=== PATIENT | female | born 1950 | race Caucasian/White ===

== ENCOUNTER → 2020-02-21 | Outpatient (CLI) | payer MEDICARE, OTHER ==
[~2020-02-21] MED LIST: AMLODIPINE BESYL5 MG PO; BACTRIM DS TAB1 EACH PO; BYSTOLIC10 MG PO; ELIQUIS5 M1; LASIX40 MG PO; MONTELUKAST SOD10 MG PO; NP THYROID15 MG; POTASSIUM CHLO20 ME1; PREDNISONE10 MG PO; THEO-24400 MG; THYROID; ZPAK PO; [UNRECOGNIZED DRUG - OTHER]
== END ==
LOC: RESP 11:49
PROVIDERS: ATTEND Internal Medicine Critical Care Medicine
DX: Z12.2 Encounter for screening for malignant neoplasm of respiratory organs (principal); F17.290 Nicotine dependence, other tobacco product, uncomplicated
CPT/HCPCS: 71250; 94060; 94664; 94727; 94729

== ENCOUNTER 2020-02-24 21:55 | Inpatient (IN) | payer MEDICARE, OTHER ==
[~2020-02-24] VITALS: Ht 152.4 cm; Wt 52.2 kg
[2020-02-24] MEDS ORDERED: ALBUTEROL SULF 0.083% NEB SOLN 3 ML NEB NEB STA (22:08)
[2020-02-24] MEDS ORDERED: IPRATROPIUM BROMIDE 0.02% 2.5 ML NEB NEB ONE (22:15)
[2020-02-24] MEDS ORDERED: ALBUTEROL SULFATE HFA 8GM INHALATION AEROSOL INH ONE (22:15)
[2020-02-24] MEDS ORDERED: METHYLPREDNISOLONE SOD SUCC 125 MG/2ML VIAL IV ONE (22:15)
--- NOTE | 2020-02-24 22:16 | NUR ---
RT AT PTS BEDSIDE TO APPLY BIPAP
[2020-02-24 22:24] LABS: BASOPHILS % 0.2 % (0.0-1.0); EOSINOPHILS % 0.1 % (0.0-6.0); HEMATOCRIT 45.3 % (34.2-44.1); HEMOGLOBIN 13.3 g/dL (12.0-16.0); LYMPHOCYTES # (AUTO) 0.7 (1.0-3.2); LYMPHOCYTES % 3.7 % (18.0-39.1); MEAN CORPUSCULAR HEMOGLOBIN 26.8 pg (28-32); MEAN CORPUSCULAR HGB CONC 29.4 g/dL (31-35); MEAN CORPUSCULAR VOLUME 91.1 fL (81-99); MONOCYTES # (AUTO) 1.2 (0.2-0.8); MONOCYTES % 6.2 % (4.4-11.3); NEUTROPHILS # (AUTO) 17.9 (2.1-6.9); NEUTROPHILS % 89.5 % (38.7-80.0); PLATELET COUNT 290 x10e3/uL (140-360); RED BLOOD COUNT 4.97 x10e6/uL (3.6-5.1)
[2020-02-24 22:31] LABS: ABG PCO2 74 mmHg (35-45)
[2020-02-24 22:32] LABS: ABG HCO3 46 mmol/L (22-26); ABG PO2 44 mmHg (80-105); ABG TCO2 48
[2020-02-24 22:47] LABS: ALANINE AMINOTRANSFERASE 13 IU/L (0-55); ALBUMIN 3.6 g/dL (3.5-5.0); ALBUMIN/GLOBULIN RATIO 0.9 (0.8-2.0); ALKALINE PHOSPHATASE 78 IU/L (40-150); ANION GAP 17.4 mmol/L (8-16); BLOOD UREA NITROGEN 13 mg/dL (7-26); BUN/CREATININE RATIO 19 (6-25); CALCIUM 9.9 mg/dL (8.4-10.2); CARBON DIOXIDE 40 mmol/L (22-29); CHLORIDE 90 mmol/L (98-107); CREATINE KINASE 38 IU/L (29-168); CREATININE, SERUM 0.67 mg/dL (0.57-1.11); EST GLOMERULAR FILTRATION RATE > 60 ML/MIN (60-); GLUCOSE 142 mg/dL (74-118); POTASSIUM 4.4 mmol/L (3.5-5.1); SODIUM 143 mmol/L (136-145)
[2020-02-24 22:53] LABS: B-TYPE NATRIURETIC PEPTIDE2 156.3 pg/mL (0-100)
--- NOTE | 2020-02-24 22:55 | Emergency Department Note ---
History of Present Illnes History of Present Illness Chief Complaint: COVID PUI History of Present Illness This is a 69 year old female PRESENTST TO THE ER C/O SOB AND COUGH ONSET X2 DAYS DEVELOPMENT LEAD; PT TACHPNEIC AND PURSED LIP BREATHING ON ARRIVAL; PT WEARS 3L NC HOME O2; PT STATES SHE HAS GONE THROUGH X2 O2 TANKS IN THE PAST X2 DAYS; PT BROUGHT TO ER RM 2 ON ARRIVAL; PT DENIES CP; PT REPORTS GREEN PHLYEM; PT SPO2 84% ON 4L NC; RT CALLED FOR STAT BIPAP PLACEMENT; . Historian: Patient Arrival Mode: Car Postal Carrier Required: No Onset (how long ago): day(s) (2) Location: CHEST Quality: SOB, PRODUCTIVE COUGH Radiation: Reports non-radiation Severity: moderate Onset quality: gradual Duration (how long): day(s) (2) Timing of current episode: constant Progression: worsening Chronicity: recurrent Context: Reports recent illness ( ABOVE); Denies recent surgery, Denies recent travel, Denies trauma/injury Relieving factors: none Exacerbating factors: movement Associated symptoms: Reports cough, Reports shortness of breath Treatments prior to arrival: none Past Medical/Family History Physician Review I have reviewed the patient's past medical and family history. Any updates have been documented here. Past Medical History Recent Fever: No Clinical Suspicion of Infectio: No New/Unexplained Change in Ment: No Past Medical History: COPD Social History Smoking Cessation: Former smoker Alcohol Use: None Any Illegal Drug Use: No Family History Family history of heart diseas: No Review of Systems Review of Systems Constitutional: Reports no symptoms EENTM: Reports no symptoms Cardiovascular: Reports no symptoms Respiratory: Reports as per HPI Gastrointestinal: Reports no symptoms Genitourinary: Reports no symptoms Musculoskeletal: Reports no symptoms Integumentary: Reports no symptoms Neurological: Reports no symptoms Psychological: Reports no symptoms Endocrine: Reports no symptoms Hematological/Lymphatic: Reports no symptoms Physical Exam Related Data Allergies: Coded Allergies: Penicillins (Verified Allergy, Unknown, 02/24/20) Triage Vital Signs Vital Signs Date Time Temp Pulse Resp B/P (MAP) Pulse Ox O2 Delivery O2 Flow Rate FiO2 02/24/20 21:55 114 42 143/114 84 Nasal Cannula 5.0 02/24/20 22:40 97.6 40 Vital signs reviewed: Yes Physical Exam CONSTITUTIONAL Constitutional: Present well-developed, Present well-nourished, Present distressed (MODERATE) HENT HENT: Present normocephalic, Present atraumatic, Present oropharynx clear/moist, Present nose normal HENT L/R: Present left ext ear normal, Present right ext ear normal EYES Eyes: Reports PERRL, Reports conjunctivae normal NECK Neck: Present ROM normal PULMONARY Pulmonary: Present effort normal, Present respiratory distress (MODERATE RR 45), Present other (WHEEZING AND DECREASES BS THROUGH OUT) CARDIOVASCULAR Cardiovascular: Present regular rhythm, Present heart sounds normal, Present capillary refill normal, Present tachycardia GASTROINTESTINAL Abdominal: Present soft, Present nontender, Present bowel sounds normal GENITOURINARY Genitourinary: Present exam deferred SKIN Skin: Present warm, Present dry MUSCULOSKELETAL Musculoskeletal: Present ROM normal NEUROLOGICAL Neurological: Present alert, Present oriented x 3, Present no gross motor or sensory deficits PSYCHOLOGICAL Psychological: Present mood/affect normal, Present judgement normal Results Laboratory Laboratory Laboratory Tests Test 02/24/20 22:26 02/24/20 22:15 02/24/20 22:12 Arterial Blood pH 7.40 (7.35-7.45) Arterial Blood Partial Pressure CO2 74 mmHg (35-45) Arterial Blood Partial Pressure O2 44 mmHg (80-105) Arterial Blood HCO3 46 mmol/L (22-26) Arterial Blood Total CO2 48 Arterial Blood Oxygen Saturation 77.0 % (95-98) Arterial Blood Base Excess 21.0 mmol/L (-2 - 3) FiO2 32 % Imaging Imaging results reviewed: Yes Impressions LLL INFILTRATE ON CXR Procedures 12 Lead ECG Interpretation ECG Interpretation : ECG: ECG 1 Postal Carrier: Interpreted by ED physician Date: Feb 24, 2020 Time: 22:45 Rhythm: sinus tachycardia Conduction: incomplete LBBB ST segments normal: No (NON SPECIFIC CHANGES,) T waves normal: No (NON SPECIFIC CHANGES) Other findings: LVH Q waves: V1, V2, V3 Critical Care Time Total Critical Care Time (min): 31 Critcal care necessary due to: respiratory failure Critcal care time spent by me: develop tx plan w patient/surrogate, discussion w consultants, discussion w primary provider, interpret cardiac output measures, evaluation patient response to tx, examination of patient, obtaining hx from patient/surrogate, order/perform tx or interventions, order/review laboratory studies, order/review radiographic studies, pulse oximetry, re-evaluation of patient condition Assessment & Plan Medical Decision Making MDM PT ARRIVES IN RESPIRATORY DISTRESS, BIPAP ORDERED ON ARRIVAL CBC,CMP, LACTIC ACID, CXR, EKG, BNP, BLOOD CULTURES ORDERED TO EVAL FOR SEPSIS, LEUKOCYTOSIS, PNEUMONIA, PULMONARY EDEMA LEVAQUIN 500 MG IV ORDERED Reassessment Reassessment time: 23:16 Reassessment PT DOING MUCH BETTER ON BIPAP, RR DOWN TO 27 TO 30, STATES SHE FEELS BETTER Assessment & Plan Final Impression: (1) COPD (chronic obstructive pulmonary disease) (2) Respiratory distress (3) Hypoxia (4) Pneumonia Last Vital Signs Date Time Temp Pulse Resp B/P (MAP) Pulse Ox O2 Delivery O2 Flow Rate FiO2 02/24/20 22:40 97.6 109 34 133/85 100 Bi-pap 40 02/24/20 21:55 5.0 Medications in the ED Albuterol 2 gm ONCE ONCE INH ; Start 02/24/20 at 22:15; Stop 02/24/20 at 22:10; Status DC Albuterol Sulfate 6 ml NOW STAT NEB ; Start 02/24/20 at 22:08; Stop 02/24/20 at 22:11; Status DC Ipratropium Toyah 2.5 ml ONCE ONCE NEB ; Start 02/24/20 at 22:15; Stop 02/24/20 at 22:16; Status DC Methylprednisolone Sodium Succinate 125 mg ONCE ONCE IV Last administered on 02/24/20at 22:27; Admin Dose 125 MG; Start 02/24/20 at 22:15; Stop 02/24/20 at 22:16; Status DC YADI LAGUNAS MD Feb 24, 2020 22:55
[2020-02-24] MEDS ORDERED: LEVOFLOXACIN 500MG/D5W 100ML 100 ML IV STA (22:56)
--- OUTSIDE RECORDS SUMMARY | 2020-02-24 22:57 | XMS REPORT | Continuity of Care Document ---
Author Author [facility] t Organization [facility] Address [address] [place] [address] Phone Unavailable Care Team Providers Care Federal Judge Name Role Phone Sharpless PCP Liliam FERRARO Unavailable Payers Payer Name Policy Type Policy Number Effective Date Expiration Date S ource Problems Condition Name Condition Details Condition Category Status Onset Date Resolution Date Last Treatment Date Treating Clinician Comments Source Moderate malnutrition Moderate malnutrition Disease Active 201 10-25-09 00:00:00 [facility] Acute on chronic respiratory failure with hypoxia Acut e on chronic respiratory failure with hypoxia Disease Active 2016-03-24 00:00:00 [facility] COPD exacerbation COPD exacerbation Disease Active 2016-03-22 00:00:00 [facility] Allergies, Adverse Reactions, Alerts Allergy Name Allergy Type Status Severity Reaction(s) Onset Date Inacti ve Date Treating Clinician Comments Source Penicillins DA Active [place] 2018-05-18 00:00:00 [facility] codeine DA Active [place] 2018-05-18 00:00:00 [facility] methylprednisolone DA Active [place] 2018-05-18 00:00:00 [facility] Codeine Propensity to adverse reactions Active 2016-03-22 0 0:00:00 [facility] Penicillins Propensity to adverse reactions Active 2015 00:00:00 [facility] Social History Social Habit Start Date Stop Date Quantity Comments Source Sex Assigned At [facility] Cigarettes smoked current (pack per day) - Reported 00:00:00 2016-03-22 00:00:00 [facility] Tobacco use and exposure 2016-03-22 00:00:00 2016-03-22 00:00:00 Form er user [facility] Alcohol intake 2016-03-22 00:00:00 2016-03-22 00:00:00 [facility] of tobacco use 2016-03-19 00:00:00 User of smokele ss tobacco [facility] Smoking Status Start Date Stop Date Source Former smoker 2016-03-22 00:00:00 2016-03-22 00:00:00 [facility] Medications Ordered Medication Name Filled Medication Name Start Date Stop Da te Current Medication? Ordering Clinician Indication Dosage Frequency Signature (SIG) Comments Components Source thyroid, pork, 30 mg Tab 2016-03-27 13:14:25 Yes 30mg Take 30 mg by mouth daily with breakfast. [facility] nebivolol (BYSTOLIC) 2.5 MG tablet 2016-03-27 13:14:25 Yes 2.5mg QD Take 2.5 mg by mouth daily. [facility] amLODIPine (NORVASC) 5 MG tablet 2016-03-27 13:14:25 Yes 5mg QD Take 5 mg by mouth daily. [facility] thyroid, pork, 60 mg Tab 2016-03-27 13:14:25 Yes 60mg QD Take 60 mg by mouth nightly. [facility] albuterol (ACCUNEB) 0.63 mg/3 mL nebulizer solution 2015-05 00:00:00 Yes .63mg Take 3 mLs (0.63 mg total) by nebulization every 6 (six) hours as needed for Wheezing. [facility] Procedures This patient has no known procedures. Results Test Description Test Time Test Comments Results Result Comments Source CT CHEST WO 2020-02-21 15:52:00 [place] [address] [place] [address] Patient Name: LUCY BENJAMIN MR #: [id number] : 1950 Age/Sex: 69/F Req #: [id number] Adm Physician: Ordered by: CINDY FERRARO MD Report #: [id number] Location: RESP Room/Bed: Procedure: [id number] CT/CT CHEST WO Exam Date: 02/21/20 Exam Time: 1424 REPORT STATUS: Signed EXAM: CT Chest WITHOUT intravenous contrast 02/21/2020 2:25 PM INDICATION: [id number] CANCER SCREENING, LOW DOSE COMPARISON: None TECHNIQUE: Chest was scanned utilizing a multidetector helical scanner from the lung apex through the level of the adr enal glands without administration of IV contrast. Coronal and sagittal reformations were obtained. Routine protocol was performed. IV CONTRAST: None RADIATION DOSE: Total DLP: 150 mGy*cm. Dose modulation, iterative reconstruction, and/or weight based adjustment of the mA/kV was utilized to reduce the radiation dose to as low as reasonably achievable. COMPLICATIONS: None FINDINGS: LINES/ TUBES: None. LUNGS AND AIRWAYS: There is a 5mm nodule in the right upper lobe (image # 25). There is a 5mm nodule in the right upper lobe inferiorly (image #50). There is a 5mm nodule in the left upper lobe (image#31). Negative for focal consolidation. Moderate emphysematous changes are noted. PLEURA: The pleural spaces are clear. HEART AND MEDIASTINUM: The thyroid gland is normal. No mediastinal, hilar or axillary lymphadenopathy. The heart is normal in size. There is no pericardial effusion. UPPER ABDOMEN: There is a 1.6cm hypodense lesion in the left hepatic lobe. There is a 0.9cm hypodense lesion in the right hepatic lobe. Additional subcentimeter lesions are noted in the inferior right hepatic lobe. BONES: No acute osseous abnormality. Exaggerated thoracic kyphosis is noted. SOFT TISSUES: Unremarkable. IMPRESSION: 1. Lung - RADS: 2. There are total of 3 less than 6 mm nodules. Recommendation: Continued annual low dose CT chest screening. 2. Background of moderate emphysematous changes. 3. Indeterminate hypodense lesions within the liver, statistically related to hepatic cysts. Signed by: Sarai Escobar MD on 02/21/2020 4:02 PM Dictated By: SARAI ESCOBAR MD 01 Transcribed By: BRODY on 02/21/201601 COPY TO: CINDY FERRARO MD, [facility] ALPHA 1 ANTITRYPSIN 2019-03-19 01:06:00 Test Item ALPHA 1 ANTITRYPSIN (test code = [id number]) 177 mg/dL 101-187 Please note reference interval changePerformed At: [facility] [place], [place] [id number] CN MD Ph:[phone] IMMUNOGLOBULIN [id number] 01:06:00* Test Item Value Reference Range Interpretation Comments IMMUNOGLOBULIN E (test code = IGE) 27 IU/mL 6-495 Performed At: [address] [id number] Deng MD Ph:[phone] ALPHA 1 [id number] 16:08:00* Test Item Value Reference Range Interpretation Comments ALPHA 1 ANTITRYPSIN (test code = [id number]) 177 mg/dL 101-187 Please note reference interval changePerformed At: [facility] [place], [place] [id number] CN MD Ph:[phone] IMMUNOGLOBULIN [id number] 16:08:00* Test Item Value Reference Range Interpretation Comments IMMUNOGLOBULIN E (test code = IGE) Unit/mL 0-100 - CT LD LUNG CA [id number] 12:16:00 Name: LUCY BENJAMIN [facility] : 1950 Age/S: 68 / F [place] [address] Unit #: [id number] Loc: [place] [address] Phys: Cindy Ferraro MD Acct: [id number] Dis Date: Status: REG CLI PHONE #: [phone] Exam Date: 09/08/2018 1132 FAX #: [phone] Reason: TOBACCO USE/NICOTINE DEPENDENCE EXAMS: CPT CODE: [id number] CT LD LUNG CA SCREENING G0297 HISTORY: Tobacco use and nicotine dependence. COMPARISON: None available. CT chest without contrast: Low- dose technique. Automated exposure control. Mild COPD with upper lobe predominance with scattered bullous changes. No discrete parenchymal mass or nodules. No bronchiectasis, honeycombing or fibrosis or endobronchial lesions. Apical pleural and parenchymal scarring. Left basal subsegmental atelectasis and scarring as well. Ascending aortic aneurysm at 3.9 cm. Descending aorta is not aneurysmal. Normal caliber unopacified pulmonary arteries. The thyroid glands are unremarkable. Esophageal wall is not thickened. No pathologic adenopathy. Cardiac silhouette is mildly enlarged without pericardial effusion. Visualized upper abdomen demonstrating 1.4 cm cyst within the left lobe the liver in segment 2. Incompletely included cystic lesion of the left kidney. Subcutaneous tissues and the musculature are normal in a ppearance. No lytic or blastic lesions are noted within the bony skeleton. DJD. IMPRESSION: No lung mass or nodules. Rou anam 12 month follow-up. Mild COPD. FOR INT ERNAL CODING PURPOSES ONLY RESULT CODE: L1 FOLL OW UP: L12 at 1216 Reported and signed by: Abdulaziz Frias M.D. CC: Cindy Ferraro MD Technologist:Cammy Oliveros RT(R),CT; CTDI: DLP: Trnscb Date/Time: 09/08/2018 (1216) [email or web address] Orig Print D/T: S: 09/08/2018 (5299) CTDI: DLP: PAGE 1 Signed Report
--- OUTSIDE RECORDS SUMMARY | 2020-02-24 22:57 | XMS REPORT | Clinical Summary ---
Author Author DONAL [facility] Address Unknown Phone Unavailable Care Team Providers Care Software Intern Name Role Phone Sharpless PCP Allergies Comments Active Allergy Reactions Severity Noted Date Codeine 03/22/2016 Penicillins 03/22/2016 Medications End Date Status Medication Sig Dispensed Refills Start Date Active thyroid, pork, 30 mg Tab Take 30 mg by 0 mouth daily with breakfast. Active nebivolol (BYSTOLIC) 2.5 Take 2.5 mg 0 MG tablet by mouth daily. Active amLODIPine (NORVASC) 5 MG Take 5 mg by 0 tablet mouth daily. Active thyroid, pork, 60 mg Tab Take 60 mg by 0 mouth nightly. Active albuterol (ACCUNEB) 0.63 Take 3 mLs 75 mL 12 1 05/27/201 mg/3 mL nebulizer (0.63 mg 6 solution total) by nebulization every 6 (six) hours as needed for Wheezing. Active Problems Problem Noted Date Moderate malnutrition 03/26/2016 Acute on chronic respiratory failure with hypoxia COPD exacerbation 03/22/2016 Social History Date Tobacco Use Types Packs/Day Years Used Former Smoker 1 Smokeless Tobacco: Former Quit: 03/19/2016 User Drinks/Week oz/Week Comments Alcohol Use No Sex Assigned at Date Recorded Not on file Last Filed Vital Signs Not on file Plan of Treatment Not on file Results Not on fileafter 02/23/2019 Insurance Type Payer Benefit Subscriber ID Effective Phone Address Plan / Dates Group Medicare MEDICARE MEDICARE A [id number] 2014- B Present [facility] - [facility] UN [id number] 16-P CARE [facility] resent INDEMNITY Advance Directives For more information, please contact: [phone] Date Inactivated Comments Code Status Date Activated 03/27/2016 3:14 PM Full Code 03/22/2016 9:22 PM This code status was determined by: Patient
[2020-02-24] MEDS ORDERED: LEVOFLOXACIN 500MG/D5W 100ML 100 ML IV ONE (23:19)
--- NOTE | 2020-02-24 23:25 | Diagnostic Imaging Report ---
EXAMINATION: CHEST SINGLE (PORTABLE) INDICATION: SOBleukocytosis. COMPARISON: Rn Night radiograph dated 02/21/2020. FINDINGS: When compared to recent commercial construction estimator radiograph, there is new confluent opacity at the left base. Heart is nonenlarged. Lungs are hyperinflated. Prominent interstitial markings likely related to underlying emphysematous change. Tiny pulmonary nodules are not radiographically apparent and better seen on recent prior CT. IMPRESSION: Left base pneumonia. Signed by: Onel Billy MD on 02/24/2020 11:22 PM
[2020-02-24] MEDS ORDERED: CEFTRIAXONE SOD 1 GM/NS 50 ML 50 ML IV SCH (23:30)
[2020-02-24] MEDS ORDERED: AZITHROMYCIN 500MG/NS 250 ML 250 ML IV SCH (23:30)
[2020-02-24] MEDS ORDERED: SODIUM CHLORIDE 0.9% 1000ML 1,000 ML IV ONE (23:30)
--- OUTSIDE RECORDS SUMMARY | 2020-02-24 23:33 | XMS REPORT | Clinical Summary ---
Author Author DONAL [facility] Address Unknown Phone Unavailable Care Team Providers Care Housekeeper Name Role Phone Sharpless PCP Allergies Comments [...] / Dates Group Medicare MEDICARE MEDICARE A [id number] 2014- B Present [facility] - [facility]GD UN [id number] 16-P CARE [facility] resent INDEMNITY Advance Directives For more information, please contact: [phone] Date Inactivated Comments Code Status Date Activated 03/27/2016 3:14 PM Full Code 03/22/2016 9:22 PM This code status was determined by: Patient
--- OUTSIDE RECORDS SUMMARY | 2020-02-24 23:34 | XMS REPORT | Continuity of Care Document ---
Author Author [facility] t Organization [facility] Address [address] [place] [address] Phone Unavailable Care Team Providers Care Drawer In Stitch Bonding Machine Name Role Phone Sharpless PCP Dai LAGUNAS Attphys Unavailable QUELiliam Attphys Unavailable QUE, Liliam WHITE Admphys Unavailable Payers Payer Name Policy Type Policy Number Effective Date Expiration Date S ource Problems Condition Name Condition Details Condition Category Status Onset Date Resolution Date Last Treatment Date Treating Clinician Comments Source Moderate malnutrition Moderate malnutrition Disease Active 201 10-25-09 00:00:00 [facility] Acute on chronic respiratory failure with hypoxia Acut e on chronic respiratory failure with hypoxia Disease Active 2016-03-24 00:00:00 [facility] COPD exacerbation COPD exacerbation Disease Active 2016-03-22 00:00:00 [facility] Allergies, Adverse Reactions, Alerts Allergy Name Allergy Type Status Severity Reaction(s) Onset Date Inacti ve Date Treating Clinician Comments Source Penicillins DA Active [place] 2018-05-18 00:00:00 [facility] codeine DA Active [place] 2018-05-18 00:00:00 [facility] methylprednisolone DA Active [place] 2018-05-18 00:00:00 [facility] Codeine Propensity to adverse reactions Active 2016-03-22 0 0:00:00 [facility] Penicillins Propensity to adverse reactions Active 2015 00:00:00 [facility] Social History Social Habit Start Date Stop Date Quantity Comments Source Sex Assigned At [facility] Cigarettes smoked current (pack per day) - Reported 00:00:00 2016-03-22 00:00:00 [facility] Tobacco use and exposure 2016-03-22 00:00:00 2016-03-22 00:00:00 Form er user [facility] Alcohol intake 2016-03-22 00:00:00 2016-03-22 00:00:00 Current non-drinker of alcohol (finding) [facility] History of tobacco use 2016-03-19 00:00:00 User of smokele ss tobacco [facility] Smoking Status Start Date Stop Date Source Former smoker 2016-03-22 00:00:00 2016-03-22 00:00:00 [facility] Medications Ordered Medication Name Filled Medication Name Start Date Stop Da te Current Medication? Ordering Clinician Indication Dosage Frequency Signature (SIG) Comments Components Source thyroid, pork, 30 mg Tab 2016-03-27 13:14:25 Yes 30mg Take 30 mg by mouth daily with breakfast. [facility] nebivolol (BYSTOLIC) 2.5 MG tablet 2016-03-27 13:14:25 Yes 2.5mg QD Take 2.5 mg by mouth daily. [facility] amLODIPine (NORVASC) 5 MG tablet 2016-03-27 13:14:25 Yes 5mg QD Take 5 mg by mouth daily. [facility] thyroid, pork, 60 mg Tab 2016-03-27 13:14:25 Yes 60mg QD Take 60 mg by mouth nightly. [facility] albuterol (ACCUNEB) 0.63 mg/3 mL nebulizer solution 2015-05 00:00:00 Yes .63mg Take 3 mLs (0.63 mg total) by nebulization every 6 (six) hours as needed for Wheezing. [facility] Procedures This patient has no known procedures. Results Test Description Test Time Test Comments Results Result Comments Source CHEST SINGLE (PORTABLE) 2020-02-24 23:17:00 [place] [address] Patient Name: LUCY BENJAMIN MR #: [id number] : 1950 Age/Sex: 69/F Req #: [id number] Adm Physician: Ordered by: YADI LAGUNAS MD Report #: [id number] Location: ER Room/Bed: Procedure: [id number] DX/CHEST SINGLE (PORTABLE) Exam Date: Exam Time: REPORT STATUS: Signed EXAMINATION: CHEST SINGLE (PORTABLE) INDICATION: SOBleukocytosis. COMPARISON: [employer] radiograph dated 02/21/2020. FINDINGS: When compared to recent chef head radiograph, there is new confluent opacity at the left base. Heart is non enlarged. Lungs are hyperinflated. Prominent interstitial markings likely related to underlying emphysematous change. Tiny pulmonary nodules are not radiographically apparent and better seen on recent prior CT. IMPRESSION: Left base pneumonia. Signed by: Kita Sandoval MD on 02/24/2020 11:22 PM Dictated By: KITA SANDOVAL MD 21 Transcribed By: BRODY on 02/24/202321 COPY TO: YADI LAGUNAS MD CT CHEST WO 2020-02-21 15:52:00 [place] [address] Patient Name: LUCY BENJAMIN MR #: [id number] : 1950 Age/Sex: 69/F Req #: [id number] Adm Physician: Ordered by: CINDY FERRARO MD Report #: [id number] Location: RESP Room/Bed: Procedure: [id number] CT/CT CHEST WO Exam Date: 02/21/20 Exam Time: 1424 REPORT STATUS: Signed EXAM: CT Chest WITHOUT intravenous contrast 02/21/2020 2:25 PM INDICATION: [id number] CANCER SCREENING, LOW DOSE COMPARISON: None [...] 4:02 PM Dictated By: SARAI ESCOBAR MD 160 Transcribed By: BRODY on 02/21/20 160 COPY TO: CINDY FERRARO MD, [facility] ALPHA 1 ANTITRYPSIN 2019-03-19 01:06:00 Test Item ALPHA 1 ANTITRYPSIN (test code = [id number]) 177 mg/dL 101-187 Please note reference interval changePerformed At: [address] [id number] CN MD Ph:[phone] IMMUNOGLOBULIN [id number] 01:06:00* Test Item Value Reference Range Interpretation Comments IMMUNOGLOBULIN E (test code = IGE) 27 IU/mL 6-495 Performed At: [address] [id number] Sanjai MD Ph:[phone] ALPHA 1 [id number] 16:08:00* Test Item Value Reference Range Interpretation Comments ALPHA 1 ANTITRYPSIN (test code = [id number]) 177 mg/dL 101-187 Please note reference interval changePerformed At: [address] [id number] CN MD Ph:[phone] IMMUNOGLOBULIN [id number] 16:08:00* Test Item Value Reference Range Interpretation Comments IMMUNOGLOBULIN E (test code = IGE) Unit/mL 0-100 - CT LD LUNG CA [id number] 12:16:00 Name: LUCY BENJAMIN [facility] : 1950 Age/S: 68 / F [address] Unit #: [id number] Loc: [place] [address] Phys: Cindy Ferraro MD Acct: [id number] Dis Date: Status: REG CLI PHONE #: [phone] Exam Date: 09/08/2018 1132 FAX #: [phone] Reason: TOBACCO USE/NICOTINE DEPENDENCE EXAMS: CPT CODE: [id number] CT LD LUNG CA SCREENING G0297 HISTORY: [...] RT(R),CT; CTDI: DLP: Trnscb Date/Time: 09/08/2018 (1216) [email or web address] Orig Print D/T: S: 09/08/2018 (1220) CTDI: DLP: PAGE 1 Signed Report
[2020-02-25] VITALS (11 sets, daily range): BP systolic 111–150; BP diastolic 68–121
[2020-02-25] MEDS ORDERED: VANCOMYCIN 750MG/NS 150ML IVPB 150 ML IV ONE (00:15)
[2020-02-25] MEDS ORDERED: FUROSEMIDE INJ 10 MG/ML 2 ML VIAL IV ONE ×2 (00:15→09:00)
--- NOTE | 2020-02-25 00:21 | NUR ---
History and physical DOS: 02/24/20 Dictation ID: [id number]
[2020-02-25] MEDS: AZITHROMYCIN 500MG/NS 250 ML 250 ML IV SCH (00:30)
--- NOTE | 2020-02-25 00:36 | NUR ---
Patient placed on hospital bed at this time. Patient tolerating Bipap well. Instructed patient to call if she needed assistance. Patient verbalized understanding.
[2020-02-25] MEDS ORDERED: VANCOMYCIN 1GM/NS 250 ML 250 ML IV ONE (01:00)
--- NOTE | 2020-02-25 02:53 | History and Physical ---
CHIEF COMPLAINT: Shortness of breath. TRANSCRIBING MACHINE OPERATOR: Walter Ferraro MD HISTORY OF PRESENT ILLNESS: Ms. Bello is a pleasant 69-year-old female with shortness of breath. The patient was in usual state until 2 days ago. The patient developed coughing. She had shortness of breath . The patient was not able to treat herself at home and she was using lot of oxygen. She came into the emergency room. In the ER, she was seen to be quite tachypneic with respiratory rate 42. Oxygen saturation 84 on 5 L/minute nasal cannula. At this point, the patient was admitted to [facility]. White blood count was 19.9, and the patient had a dense left lower lobe infiltrate with possible pleural effusion. PAST MEDICAL HISTORY: COPD, perennial allergies. MEDICATIONS: Medication list reviewed per the chart record. ALLERGIES: PENICILLIN. SOCIAL HISTORY: No alcohol. No drugs. The patient is a long-time smoker and currently smokes one-half pack per day actively. The patient is independent. FAMILY HISTORY: Noncontributory. REVIEW OF SYSTEMS: Cannot get reliably. She is on respiratory support device. PHYSICAL EXAMINATION: VITAL SIGNS: Afebrile, vital signs noted. Reviewed per the chart record. Generally, heart rate currently 115 beats per minute, sinus. Current weight is 115 pounds, 5 feet 0 inches with a BMI of 20.45. Generally she can say some phrases on BiPAP, but limited energy. Thin woman with mild increased work of breathing. HEENT: Normocephalic, atraumatic. NECK: Supple. Throat midline. LUNGS: Bilateral air entry, decreased breath sounds throughout, no maikel wheezes. CARDIOVASCULAR: S1, S2. No murmurs, rubs, or gallops. Abdominal exam is soft nontender. EXTREMITIES: No clubbing. No cyanosis. There is 2+ edema to the legs. INTEGUMENT: No rash. No purpura. LABORATORY DATA: Labs reviewed per the chart record. Bicarbonate 40, BUN 13, 0.67 creatinine. 4.4 potassium. 45 hematocrit, 219 platelets, 19.9 white count. LFTs this day including albumin of 3.6. BNP is 156. ABG 7.40/74/44/46. On room air with a saturation of 77%. Her positive FiO2 32%, although 32% on the computer attached note. CT chest done as outpatient in the office just 3 days ago for low-dose lung cancer screening with three different lung nodules, 5 mm maximum diameter, no pneumonia at that time. IMPRESSION AND PLAN: 1. Acute respiratory failure, BiPAP salvage. 2. Chronic obstructive pulmonary disease with exacerbation. 3. Perennial allergies. 4. Active smoker. 5. Leg edema under evaluation. 6. Left lower lobe pneumonia. 7. Possible left-sided pleural effusion. 8. Abnormal EKG, intermediate left block pattern. 9. Chronic respiratory failure on home oxygen. At this time, continue BiPAP can wean if feasible. Check ultrasound to rule out pleural effusion on the left side and consider thoracentesis if needed. Give a trial of diuretics. Aggressive antibiotics for community-acquired pneumonia in setting of structural lung disease. Cardiology consultation, given the abnormal EKG and peripheral edema. Smoking cessation would be helpful. We will follow up closely. Steroids and bronchodilators of course. DVT prophylaxis. MD JIMENEZ Izaguirre/JEMMA /[id number]
[2020-02-25 04:22] LABS: BASOPHILS % 0.1 % (0.0-1.0); HEMATOCRIT 39.6 % (34.2-44.1); HEMOGLOBIN 11.6 g/dL (12.0-16.0); LYMPHOCYTES # (AUTO) 0.2 (1.0-3.2); LYMPHOCYTES % 1.2 % (18.0-39.1); MEAN CORPUSCULAR HEMOGLOBIN 26.3 pg (28-32); MEAN CORPUSCULAR HGB CONC 29.3 g/dL (31-35); MEAN CORPUSCULAR VOLUME 89.8 fL (81-99); MONOCYTES # (AUTO) 0.2 (0.2-0.8); MONOCYTES % 1.2 % (4.4-11.3); NEUTROPHILS # (AUTO) 18.7 (2.1-6.9); RED BLOOD COUNT 4.41 x10e6/uL (3.6-5.1); RED CELL DISTRIBUTION WIDTH 12.9 % (11.7-14.4)
[2020-02-25] MEDS: METHYLPREDNISOLONE SOD SUCC 40 MG/ML VIAL 1ML IV SCH ×4 (04:22→22:00)
[2020-02-25 04:24] LABS: PLATELET COUNT 235 x10e3/uL (140-360)
[2020-02-25 04:41] LABS: CREATINE KINASE MB 1.6 ng/mL (0-5.0)
[2020-02-25 04:50] LABS: ALANINE AMINOTRANSFERASE 11 IU/L (0-55); ALBUMIN 2.9 g/dL (3.5-5.0); ALBUMIN/GLOBULIN RATIO 0.8 (0.8-2.0); ALKALINE PHOSPHATASE 58 IU/L (40-150); ANION GAP 14.4 mmol/L (8-16); BLOOD UREA NITROGEN 11 mg/dL (7-26); BUN/CREATININE RATIO 18 (6-25); CALCIUM 8.5 mg/dL (8.4-10.2); CARBON DIOXIDE 40 mmol/L (22-29); CHLORIDE 91 mmol/L (98-107); CREATININE, SERUM 0.61 mg/dL (0.57-1.11); EST GLOMERULAR FILTRATION RATE > 60 ML/MIN (60-); GLUCOSE 134 mg/dL (74-118); POTASSIUM 3.4 mmol/L (3.5-5.1); SODIUM 142 mmol/L (136-145)
--- NOTE | 2020-02-25 05:26 | NUR ---
Patient resting on BiPAP at this time. Patient remains and alerted at this time. No distress noted.
[2020-02-25] MEDS: IPRATROPIUM BROMIDE 0.02% 2.5 ML NEB NEB SCH ×4 (06:35→23:15)
[2020-02-25] MEDS: ALBUTEROL SULF 0.083% NEB SOLN 3 ML NEB NEB SCH ×5 (06:35→23:15)
--- NOTE | 2020-02-25 06:56 | NUR ---
Report to CARRIE Win
[2020-02-25] MEDS: NICOTINE 21 MG/EA PATCH TOP SCH (09:00)
--- NOTE | 2020-02-25 10:34 | Consultation ---
DATE OF CONSULTATION: 02/25/2020 CARDIOLOGY CONSULTATION: CHIEF COMPLAINT: The patient is a 69-year-old female with a shortness of breath. HISTORY OF PRESENT ILLNESS: The patient is a 69-year-old with a history of chronic obstructive pulmonary disease on home oxygen, developed worsening shortness of breath over the last several days. The patient came to the emergency room, was noted to have a white blood cell count of 19.9, and infiltrate on chest x-ray in the left lower lobe. The patient had no chest pain. The patient was admitted for continued care. PAST MEDICAL HISTORY: Significant for: 1. Chronic obstructive pulmonary disease. 2. Home oxygen. MEDICATIONS: At home include: 1. Albuterol. 2. Atrovent. 3. Nicoderm patch. SOCIAL HISTORY: The patient has been a heavy smoker. The patient does not drink. FAMILY HISTORY: There is a known family history of coronary artery disease. PHYSICAL EXAMINATION: GENERAL: The patient is a thin female, in no obvious distress. VITAL SIGNS: Included a temperature of 98, pulse was 102, the blood pressure 123/76. HEAD, EARS, EYES, NOSE, AND THROAT: The patient's cranium was normocephalic and atraumatic. Extraocular muscles were intact. The sclerae were anicteric. Pupils were equal, round, and reactive to light. There is no pallor or cyanosis of the oral mucosa. There is no erythema or edema of the throat. NECK: Supple. No jugular venous distention. CHEST: Demonstrated rhonchi bilaterally. CARDIAC: Demonstrated tachycardia with a normal S1 and S2 with a short 2/6 systolic murmur. ABDOMINAL: Demonstrated good bowel sounds. No tenderness and no masses. EXTREMITIES: There was no clubbing, no cyanosis, and no edema. NEUROLOGICAL: The patient was alert and oriented x3. Cranial nerves II through XII were intact. Motor strength was +5/+5 in all limbs. The patient's EKG demonstrated sinus tachycardia with left ventricular hypertrophy. IMPRESSION: The patient is a 69-year-old admitted with an exacerbation of chronic obstructive pulmonary disease and superimposed pneumonia. The possibility of concomitant congestive heart failure will need to be considered. RECOMMENDATIONS: 1. An echocardiogram has been ordered. 2. The patient will be monitored on telemetry. 3. Cardiac enzymes and serial EKGs have been requested. MD NOHEMI Hanson/JEMMA /[id number] cc: Walter Ferraro MD
--- NOTE | 2020-02-25 11:44 | Progress Note ---
DATE: 02/25/2020 PULMONARY CRITICAL CARE PROGRESS NOTE: SUBJECTIVE: The patient is feeling better than yesterday. She still has some tremulousness. She still has some dyspnea. She has some leg swelling and is awaiting an echocardiogram. PHYSICAL EXAMINATION: VITAL SIGNS: Blood pressure is 124/86, saturation is 98% on 3 L, pulse is 98. HEENT: Shows no facial swelling or erythema. LYMPHATIC: Shows no submandibular, cervical, or supraclavicular adenopathy. CARDIAC: Reveals regular rate and rhythm with normal S1, S2. LUNGS: Auscultation of lungs reveals decreased breath sounds at the bases. There is no wheezing. ABDOMEN: Soft, nontender. There is no rebound or guarding. EXTREMITIES: Shows 1 to 2+ leg edema. LABORATORY DATA: White blood cell count is 19.2, hemoglobin is 11.6, and the platelet count is 235. The BUN to creatinine ratio is normal. The other electrolytes are within normal limits except for a carbon dioxide of 40. The potassium is 3.4 and the albumin is 2.9. Blood gas is 7.4, CO2 is 74, O2 is 44 and carbon dioxide is 46. IMPRESSION: 1. Acute on chronic respiratory failure with hypercapnia. 2. Chronic obstructive pulmonary disease, requiring treatment with budesonide and Perforomist at home. 3. Severe protein-calorie malnutrition. 4. Left lower lobe pneumonia with sepsis, present on admission. 5. Leg edema, probably secondary to chronic cor pulmonale and chronic obstructive pulmonary disease. PLAN: 1. Continue Solu-Medrol. 2. Continue aggressive bronchodilators. 3. Await echocardiogram. 4. Continue antibiotics. 5. Judicious use of diuretics. 6. Dietary consult with nutritional supplementation. 7. The patient would be a candidate for a VAPS device and noninvasive ventilation at home. MD CASI Dueñas/MODL /[id number]
[2020-02-25 13:21] LABS: CREATINE KINASE MB 1.8 ng/mL (0-5.0)
[2020-02-25] MEDS: ENOXAPARIN SOD INJ 40 MG/0.4 ML SYR SC SCH (16:16)
--- NOTE | 2020-02-25 17:41 | Progress Note ---
DATE: 02/25/2020 INTERNAL MEDICINE PROGRESS NOTE: SUBJECTIVE: The patient is a 69-year-old female, who has a past medical history positive for hypothyroidism, COPD, hypertension. She was at home, she was complaining of increasing shortness of breath, and cough. She was found to have a hypoxia respiratory failure on arrival to the hospital, COPD exacerbation, oxygen was started, IV antibiotics were started for COVID-19 with the report still pending. The patient is in the respiratory isolation in the meantime. Dr. Ferraro transferred the patient to my care as a primary attending, he will remain as a consult on the case. PHYSICAL EXAMINATION: HEART: Showed regular rhythm. Normal S1, S2 sound. LUNGS: Showed decreased breath sounds bilaterally. ABDOMEN: Soft. EXTREMITIES: Show no edema. LABORATORY DATA: I unable to see the chest x-ray so far, all the care has been transferred to my service; same with blood work, we do not no have the access to report yet. FINAL IMPRESSION: 1. Acute hypoxic respiratory failure, most likely secondary to chronic obstructive pulmonary disease exacerbation. Rule COVID-19. 2. Chronic obstructive pulmonary disease exacerbation. 3. Hypertension. 4. Hypothyroidism. 5. Rule out COVID-19. PLAN OF TREATMENT: Of course, the patient will be on empiric IV antibiotics. COVID-19 is pending. Continue the oxygen supplementation. We are going to resume the home medication also which include amlodipine that she was taking before, Dr. Ferraro will remain as consulted for Pulmonary in the case. Time spent around 45 minutes. MD YNES Salas/IVANAL /[id number]
[2020-02-25] MEDS ORDERED: NP THYROID15 MG (17:43)
[2020-02-25] MEDS ORDERED: [UNRECOGNIZED DRUG - OTHER] (17:43)
[2020-02-25] MEDS ORDERED: THEO-24400 MG (17:52)
[2020-02-25] MEDS ORDERED: MONTELUKAST SOD10 MG PO (17:52)
[2020-02-25] MEDS ORDERED: THYROID (17:52)
[2020-02-25] MEDS ORDERED: BYSTOLIC10 MG PO (17:54)
[2020-02-25] MEDS ORDERED: AMLODIPINE BESYL5 MG PO (17:58)
[2020-02-25] MEDS ORDERED: METOPROLOL TARTRATE INJ 1 MG/ML VIAL IV PRN (20:15)
[2020-02-25] MEDS ORDERED: DIGOXIN INJ 0.25 MG/ML 2 ML AMP IV ONE (20:30)
[2020-02-25] MEDS ORDERED: DILTIAZEM HCL 30 MG TAB PO SCH (21:00)
[2020-02-25] MEDS ORDERED: LEVOFLOXACIN 750MG/D5W 150ML 150 ML IV SCH (23:00)
[2020-02-25] MEDS: CEFTRIAXONE SOD 1 GM/NS 50 ML 50 ML IV SCH (23:54)
[2020-02-26] VITALS (16 sets, daily range): BP systolic 100–137; BP diastolic 73–99
[2020-02-26] MEDS: IPRATROPIUM BROMIDE 0.02% 2.5 ML NEB NEB SCH ×3 (03:40→19:20)
[2020-02-26] MEDS: ALBUTEROL SULF 0.083% NEB SOLN 3 ML NEB NEB SCH ×2 (03:40→07:20)
[2020-02-26] MEDS: METHYLPREDNISOLONE SOD SUCC 40 MG/ML VIAL 1ML IV SCH ×4 (04:16→22:23)
[2020-02-26 05:23] LABS: BASOPHILS % 0.1 % (0.0-1.0); LYMPHOCYTES # (AUTO) 0.4 (1.0-3.2); LYMPHOCYTES % 2.4 % (18.0-39.1); MEAN CORPUSCULAR VOLUME 90.1 fL (81-99); MONOCYTES # (AUTO) 0.4 (0.2-0.8); MONOCYTES % 2.1 % (4.4-11.3); NEUTROPHILS # (AUTO) 16.8 (2.1-6.9); NEUTROPHILS % 94.7 % (38.7-80.0); PLATELET COUNT 251 x10e3/uL (140-360); RED BLOOD COUNT 4.44 x10e6/uL (3.6-5.1); RED CELL DISTRIBUTION WIDTH 12.9 % (11.7-14.4)
[2020-02-26] MEDS: DILTIAZEM HCL 30 MG TAB PO SCH ×4 (05:31→23:39)
[2020-02-26 05:50] LABS: ALANINE AMINOTRANSFERASE 12 IU/L (0-55); ALBUMIN 2.8 g/dL (3.5-5.0); ALBUMIN/GLOBULIN RATIO 0.8 (0.8-2.0); ALKALINE PHOSPHATASE 73 IU/L (40-150); ANION GAP 14.4 mmol/L (8-16); BUN/CREATININE RATIO 29 (6-25); CALCIUM 9.1 mg/dL (8.4-10.2); CHLORIDE 90 mmol/L (98-107); CREATININE, SERUM 0.66 mg/dL (0.57-1.11); EST GLOMERULAR FILTRATION RATE > 60 ML/MIN (60-); GLUCOSE 100 mg/dL (74-118); POTASSIUM 3.4 mmol/L (3.5-5.1); SODIUM 144 mmol/L (136-145)
[2020-02-26 05:51] LABS: CARBON DIOXIDE 43 mmol/L (22-29)
[2020-02-26 05:52] LABS: BLOOD UREA NITROGEN 19 mg/dL (7-26)
[2020-02-26 06:17] LABS: ANION GAP 16.4 mmol/L (8-16); BLOOD UREA NITROGEN 19 mg/dL (7-26); BUN/CREATININE RATIO 30 (6-25); CALCIUM 9.1 mg/dL (8.4-10.2); CHLORIDE 89 mmol/L (98-107); CREATININE, SERUM 0.63 mg/dL (0.57-1.11); EST GLOMERULAR FILTRATION RATE > 60 ML/MIN (60-); GLUCOSE 99 mg/dL (74-118); MAGNESIUM 1.8 MG/DL (1.3-2.1); PHOSPHORUS 3.4 MG/DL (2.3-4.7); POTASSIUM 3.4 mmol/L (3.5-5.1); SODIUM 144 mmol/L (136-145)
[2020-02-26 06:27] LABS: CARBON DIOXIDE 42 mmol/L (22-29)
--- NOTE | 2020-02-26 06:49 | NUR ---
Pt went into AF RVR rate of 170-180's at 1999. Dr Holbrook called with new orders for Metoprolol IV and Cardizem PO. Dr. Brown consulted [facility] for persistent AF RVR > 150 with Dig 0.5 IV given once. Pt sent back into ST 100's by 010. Pt refused Bipap from RT [facility]. 2L/nc continues with sats> 94%. Denies pain. See flowsheet.
[2020-02-26] MEDS: NICOTINE 21 MG/EA PATCH TOP SCH (07:57)
--- NOTE | 2020-02-26 08:23 | Diagnostic Imaging Report ---
Chest, 1 view, 02/26/2020. History: Shortness of breath. Comparison: 02/24/2020. Findings: The cardiomediastinal silhouette and pulmonary vasculature are within normal limits for a portable exam. There is no focal consolidation or pleural effusion. Mild bilateral interstitial prominence is unchanged. There are no acute osseous or soft tissue abnormalities. Impression: No acute cardiopulmonary abnormality. Signed by: Tru Badillo on 02/26/2020 8:20 AM
[2020-02-26] MEDS ORDERED: POTASSIUM CHLORIDE 20 MEQ TAB CR PO ONE ×2 (09:15→10:00)
[2020-02-26] MEDS: ASPIRIN 81 MG ENTERIC COATED PO SCH (09:51)
[2020-02-26] MEDS: LEVALBUTEROL HCL SOLN NEBU 0.63 MG/3 ML NEB INH PRN (11:05)
--- NOTE | 2020-02-26 11:19 | Progress Note ---
DATE: Internal Medicine Progress Note. SUBJECTIVE: The patient is very anxious. She had an episode of atrial fibrillation with rapid ventricular response yesterday, now is much better after she received Cardizem and IV metoprolol. PHYSICAL EXAMINATION: HEART: Irregularly irregular heart rate. Normal S1, S2 sound. LUNGS: Show decreased breath sounds bilaterally. ABDOMEN: Soft. EXTREMITIES: Show no edema. VITAL SIGNS: Blood pressure 129/80, temperature 99.8, heart rate 100 per minute, respiratory rate 26 per minute, oxygen saturation 98%. LABORATORY DATA: We have blood work, we have CBC; white blood count 7.77, hemoglobin 12.0, hematocrit 40.0, platelet count 251,000. On the BMP; sodium 144, potassium 3.4, chloride 90, CO2 is 43 which is elevated, BUN 19, creatinine 0.66, glucose is 100, calcium 9.1, phos 3.4, magnesium 1.8, total bilirubin 0.2, AST 12, ALT 73. Troponin is negative. Total protein 6.5, albumin 2.8, globulin 3.7. COVID test is done, still waiting for that. Blood gas, pH 7.43, pCO2 is very elevated at 74, PO2 is 44, bicarbonate 46, and oxygen saturation was 77, but right now is 100%. IMAGING: Chest x-ray, which showed no acute cardiopulmonary abnormality. FINAL IMPRESSION: 1. Acute hypoxic respiratory failure. 2. Chronic obstructive pulmonary disease exacerbation. 3. Chronic atrial fibrillation with tachycardia and hypertension. 4. History of anxiety. PLAN OF TREATMENT: 1. Continue Zithromax 500 mg IV daily, Rocephin 1 g IV once a day, and she is on normal saline one time. Tylenol 650 mg q.4 hours as needed for mild pain or fever, albuterol q.4 hours, Atrovent q.6 hours. She received digoxin 0.5 mg IV one time. She is on Cardizem 30 mg q.6 hours. She is on Lovenox 40 mg subcutaneously daily. She is on methylprednisolone 40 mg IV q.6 hours, metoprolol 5 mg IV q.2 hours as needed for tachycardia, NicoDerm patch 21 mg daily. She received potassium also one time because of hypokalemia. We are going to discontinue the albuterol and instead, we are going to give her Xopenex due to tachycardia. We are going start her also on budesonide and we are going to recheck the potassium. We are going to do CBC tomorrow. White blood count is elevated because of the corticosteroids. COVID test is negative, still pending. Chest x-ray did not show any significant abnormality. We are going to give her some BuSpar 5 mg three times a day as needed for anxiety. The patient went to get a Cardiology consult with . The patient remains in the IM. The case discussed with the patient via functional consultant. Time spent 45 minutes. MD YNES Salas/JEMMA /[id number]
--- NOTE | 2020-02-26 13:34 | Diagnostic Imaging Report ---
Chest ultrasound. History: Pleural effusion. Comparison: CT chest 02/21/2020. Discussion: Transverse and longitudinal sonographic imaging of the bilateral posterior chest was performed. Small left pleural effusion is identified. No effusion is seen on the right. IMPRESSION: Small left pleural effusion. Signed by: Tru Badillo on 02/26/2020 1:30 PM
--- NOTE | 2020-02-26 13:40 | NUR ---
Nutrition Intervention Note RD Recommendation(s) for Physician: - Continue current diet as tolerated - Recommend continue Ensure Compact TID - Recommend MVI with minerals once daily for adequacy Plan of Care: RD following, monitoring for tolerance and adequacy. ONS and vitamin/mineral rec's. Nutrition reason for involvement: MD Consult- supplements RD Assessment 02/25: 69 YOF admitted for COPD exacerbation and PNA. Pt evaluated today per MD consult. Pt on BiPAP at time of visits, anxious today, unable to obtain hx at this time. Pt appears well nourished. Current diet and supplement remain appropriate. Chart reviewed. Will continue to monitor. Principal Problems/Diagnoses: COPD, hypoxia, pneumonia, respiratory distress PMH: COPD GI: abd soft, non tender Skin: intact Labs: 02/25: Na 144, K 3.4, BUN 19, Cr 0.66, Gluc 100, Ca 9.1, Phos 3.4, Mg 1.8 Meds: solumedrol, abx Ht: 60 in Wt: 115 lb BMI: 22.5 kg/m2 IBW: 110 lb Malnutrition Evaluation (02/26/20) The patient does not meet criteria for a specified degree of malnutrition at this time. Will re-evaluate at follow-up as appropriate. Pt anxious on BiPAP, unable to obtain hx. Energy intake: Unable to assess Weight loss: Unable to assess Fat loss: none observed, ample skin fold thickness Muscle loss: none observed, shoulder round Supporting Evidence: Fluid accumulation: +2 BLE edema Functional Status: unable to evaluate Nutrition Prescription (Diet Order): Cardiac Estimated Nutritional Needs: [id number] calories/day (25-30 kcal/kg CBW) 45-68 g protein/day (1-1.5 g pro/kg CBW) Diet Adequacy: Not meeting calorie needs, Not meeting protein needs Diet Tolerance: tolerating po Diet Education Needs Assessment: Diet education not indicated at this time. Nutrition Care Level: moderate Nutrition Diagnosis: Inadequate energy and protein intake related to current respiratory status as evidenced by not meeting needs. Goal: Patient will meet 75-100% of estimated needs by follow up Progress: N/A Interventions: -fat, mineral-modified diet, Commercial beverage, Multivitamin/mineral supplement therapy, Collaboration with other providers, recommend modifications Monitoring/Evaluation: -Total energy intake, Total protein intake, Modified diet, Liquid supplement, Weight change Signed: Nora Neely RD, LD, [facility]
[2020-02-26] MEDS: BUSPIRONE HCL 5 MG TAB PO PRN (14:48)
[2020-02-26] MEDS: BUDESONIDE 90 MCG FLEXHALER IH SCH (15:38)
[2020-02-26] MEDS: ENOXAPARIN SOD INJ 40 MG/0.4 ML SYR SC SCH (17:04)
[2020-02-26] MEDS ORDERED: DEXMEDETOMIDINE 200MCG/NS 50ML 50 ML IV PRN (17:30)
--- NOTE | 2020-02-26 17:42 | Diagnostic Imaging Report ---
EXAMINATION: CHEST SINGLE (PORTABLE) INDICATION: Respiratory distress ^resp distress ^[id number] ^[id number] COMPARISON: 02/26/2020 FINDINGS: TUBES and LINES: None. LUNGS: Perihilar peribronchial hazy opacity could be due to bronchitis. No focal lung consolidation. Chronic appearing change in the lungs. PLEURA: No pleural effusion or pneumothorax. HEART AND MEDIASTINUM: The cardiomediastinal silhouette is unremarkable. BONES AND SOFT TISSUES: No acute osseous lesion. Soft tissues are unremarkable. UPPER ABDOMEN: No free air under the diaphragm. IMPRESSION: Perihilar peribronchial hazy opacity could be due to bronchitis. No focal lung consolidation. Chronic appearing change in the lungs. Signed by: Dr. Bradford Curtis M.D. on 02/26/2020 5:39 PM
[2020-02-26 17:47] LABS: ABG PCO2 70 mmHg (35-45); ABG PH 7.45 (7.35-7.45)
[2020-02-26 17:48] LABS: ABG HCO3 48 mmol/L (22-26); ABG PO2 98 mmHg (80-105); ABG TCO2 > 50
--- NOTE | 2020-02-26 18:10 | NUR ---
Precedex gtt started. patient on continuous bi-pap and continuous ekg monitoring
--- NOTE | 2020-02-26 18:16 | Progress Note ---
DATE: Pulmonary Critical Care Progress Note. SUBJECTIVE: The patient is having more difficulty breathing. She was placed on BiPAP today. She is still receiving Solu-Medrol as well as bronchodilators and antibiotics. PHYSICAL EXAMINATION: VITAL SIGNS: Blood pressure is 137/99, pulse is 108, and she is afebrile. The BiPAP is in place and is saturating 98%. HEENT: Shows no facial swelling or erythema. LYMPHATIC: Shows no submandibular, cervical, supraclavicular adenopathy. CARDIAC: Reveals tachycardia with normal S1, S2. LUNGS: Auscultation of lungs shows decreased breath sounds. ABDOMEN: Soft and nontender. There is no rebound or guarding. EXTREMITIES: Shows no leg edema or calf tenderness. There is no cyanosis or clubbing. SKIN: Shows no rashes. NEUROLOGICAL: Shows no focal abnormalities. LABORATORY DATA: BUN to creatinine ratio is 19 to 0.66. The carbon dioxide is 43 and the chloride is 90. The other electrolytes are significant for potassium of 3.4 and albumin of 2.8. The white blood cell count is 17.7, hemoglobin is 12, and the platelet count is 251. RADIOGRAPHIC DATA: Chest x-ray shows hyperinflated lung barboza. IMPRESSION: 1. Qwysc-ej-aotmaxi respiratory failure with hypercapnia. 2. Chronic obstructive pulmonary disease with acute exacerbation. 3. Severe protein-calorie malnutrition. 4. Left lower lobe pneumonia with sepsis, present on admission. 5. Chronic leg edema secondary to cor pulmonale. 6. Atrial fibrillation. 7. Asthma. PLAN: 1. Repeat chest x-ray. 2. Repeat ABG. 3. Continue Solu-Medrol along with antibiotics and bronchodilators. 4. Continue BiPAP. 5. Transfer to intensive care unit. 6. Begin Precedex. 7. Prognosis remains poor. Vikas Daugherty MD [facility]/MODL /[id number]
[2020-02-26] MEDS: CEFTRIAXONE SOD 1 GM/NS 50 ML 50 ML IV SCH (23:09)
[2020-02-26] MEDS: AZITHROMYCIN 500MG/NS 250 ML 250 ML IV SCH (23:38)
[2020-02-27] VITALS (26 sets, daily range): BP systolic 84–120; BP diastolic 58–85
[2020-02-27] MEDS: METHYLPREDNISOLONE SOD SUCC 40 MG/ML VIAL 1ML IV SCH ×4 (04:00→22:26)
[2020-02-27] MEDS: DILTIAZEM HCL 30 MG TAB PO SCH ×4 (06:00→23:37)
[2020-02-27] MEDS: BUDESONIDE 90 MCG FLEXHALER IH SCH ×2 (07:00→19:00)
--- NOTE | 2020-02-27 07:39 | NUR ---
Holding PT services since patient is moved to higher level of care ( IMCU to ICU). Please write need new PT orders when appropriate. Thank you Addendum: 02/27/20 at 0741 by Pineda burns PT Amended: Links added.
[2020-02-27 07:57] LABS: HEMATOCRIT 40.5 % (34.2-44.1); LYMPHOCYTES # (AUTO) 0.4 (1.0-3.2); LYMPHOCYTES % 3.8 % (18.0-39.1); MEAN CORPUSCULAR HEMOGLOBIN 26.5 pg (28-32); MEAN CORPUSCULAR HGB CONC 29.6 g/dL (31-35); MEAN CORPUSCULAR VOLUME 89.6 fL (81-99); MONOCYTES # (AUTO) 0.3 (0.2-0.8); MONOCYTES % 2.8 % (4.4-11.3); NEUTROPHILS # (AUTO) 10.9 (2.1-6.9); NEUTROPHILS % 93.1 % (38.7-80.0); PLATELET COUNT 149 x10e3/uL (140-360); RED BLOOD COUNT 4.52 x10e6/uL (3.6-5.1); RED CELL DISTRIBUTION WIDTH 13.2 % (11.7-14.4)
[2020-02-27 08:49] LABS: ALANINE AMINOTRANSFERASE 13 IU/L (0-55); ALBUMIN 2.9 g/dL (3.5-5.0); ALBUMIN/GLOBULIN RATIO 0.8 (0.8-2.0); ALKALINE PHOSPHATASE 60 IU/L (40-150); ANION GAP 13.1 mmol/L (8-16); BLOOD UREA NITROGEN 29 mg/dL (7-26); BUN/CREATININE RATIO 42 (6-25); CALCIUM 9.2 mg/dL (8.4-10.2); CHLORIDE 94 mmol/L (98-107); CREATININE, SERUM 0.69 mg/dL (0.57-1.11); EST GLOMERULAR FILTRATION RATE > 60 ML/MIN (60-); GLUCOSE 136 mg/dL (74-118); POTASSIUM 4.1 mmol/L (3.5-5.1); SODIUM 146 mmol/L (136-145)
[2020-02-27 08:53] LABS: CARBON DIOXIDE 43 mmol/L (22-29)
[2020-02-27] MEDS: IPRATROPIUM BROMIDE 0.02% 2.5 ML NEB NEB SCH ×3 (09:00→19:45)
--- NOTE | 2020-02-27 09:11 | NUR ---
PATIENT EXTREMELY ANXIOUS WITH HR INCREASED INTO 100'S AND RR 45 WITH O2 SATS DOWN TO 77%. INCREASED PRECEDEX DRIP Addendum: 02/27/20 at 0913 by Tomasa Livingston RN PUT BACK ON BI-PAP
[2020-02-27] MEDS: NICOTINE 21 MG/EA PATCH TOP SCH (09:20)
[2020-02-27] MEDS: ASPIRIN 81 MG ENTERIC COATED PO SCH (09:34)
--- NOTE | 2020-02-27 10:48 | Progress Note ---
DATE: Pulmonary Critical Care Progress Note. SUBJECTIVE: The patient is now in the Intensive Care Unit. She was transferred yesterday because of increasing respiratory distress. She has been on BiPAP overnight. She was placed on nasal cannula briefly, but desaturated. She became anxious and uncomfortable and had to be placed back on BiPAP. PHYSICAL EXAMINATION: VITAL SIGNS: Blood pressure is 110/71. The patient is currently on BiPAP 16/8 with oxygen set at 40%. She is also on Precedex. Her heart rate is 93 and her respiratory rate is 22. HEENT: Shows no facial swelling or erythema. LYMPHATIC: Shows no submandibular, cervical, or supraclavicular adenopathy. CARDIAC: Reveals a regular rate and rhythm with normal S1 and S2. LUNGS: Shows decreased breath sounds with poor inspiratory effort. ABDOMEN: Soft and nontender. There is no rebound or guarding. EXTREMITIES: There is some atrophy in the lower extremities, but has some mild edema. LABORATORY DATA: White blood cell count is 11.7, hemoglobin is 12 and the platelet count is 149. The BUN to creatinine ratio is 29 to 0.69. Sodium is 148 and the carbon dioxide is 43. The albumin is 2.9. Other electrolytes are within normal limits. RADIOGRAPHIC DATA: Chest x-ray shows peribronchial hazy opacity of unclear significance. IMPRESSION: 1. Midxe-yj-xelmffn respiratory failure with hypercapnia. 2. Chronic obstructive pulmonary disease with acute exacerbation. 3. Severe protein-calorie malnutrition. 4. Left lower lobe pneumonia with sepsis, present on admission. 5. Chronic leg edema secondary to cor pulmonale. 6. Atrial fibrillation. PLAN: 1. Continue BiPAP. 2. Continue Precedex. 3. Solu-Medrol along with bronchodilators. 4. Continue antibiotics. 5. Prognosis remains poor. The is aware of this. The patient and the wish to continue full measures for now. Greater than 35 minutes in direct critical care time. Vikas Daugherty MD [facility]/MODL /[id number]
--- NOTE | 2020-02-27 11:44 | NUR ---
PATIENT WANTS TO STAY ON BEDPAN
--- NOTE | 2020-02-27 11:53 | NUR ---
NEW BAG OF PRECEDEX HUNG
[2020-02-27 12:56] LABS: LYMPHOCYTES % (MANUAL) 10 % (19-48); MONOCYTES % (MANUAL) 4 % (3.4-9.0); NEUTROPHILS % (MANUAL) 86 % (40-74)
[2020-02-27 12:57] LABS: HYPOCHROMASIA MODERATE; PLATELET ESTIMATE SLIGHTLY DECREASED; RBC MORPHOLOGY COMMENT NORMAL
--- NOTE | 2020-02-27 15:54 | Progress Note ---
DATE: ADDENDUM: Another diagnosis of the patient is acute renal failure. We are going to check a BMP tomorrow. Increase fluid intake. MD YNES Salas/MODL /[id number]
--- NOTE | 2020-02-27 15:54 | NUR ---
new bag Precedex gtt hung
--- NOTE | 2020-02-27 16:09 | Progress Note ---
DATE: Internal Medicine Progress Note SUBJECTIVE: The patient was transferred to the Intensive Care Unit due to worsening of respiratory failure. The patient tested negative for COVID-19. She is on oxygen right now, keeping oxygen saturation more than 90%, which is 100% right now on nasal cannula. PHYSICAL EXAMINATION: HEART: Showed regular rhythm. Normal S1, S2 sound. LUNGS: Clear bilaterally, significantly decreased. ABDOMEN: Soft. EXTREMITIES: Show no edema. VITAL SIGNS: Blood pressure 115/71, temperature 98.2, heart rate 78 per minute, respiratory rate 22 per minute, O2 saturation 100%. LABORATORY DATA: On the blood work, we have CBC; white blood count 11.72, hemoglobin 12.0, hematocrit 40.5, platelet count of 149,000. On the BMP; sodium 146, potassium 4.1 chloride 94, CO2 of 43, BUN 29, creatinine 0.69, GFR 60, glucose is 136, calcium 9.2, magnesium 1.8, total bilirubin 0.2. AST 17, ALT 13, alkaline phosphatase 58. Troponin negative x3. Chest x-ray show peribronchial hazy opacity could be due to bronchitis, consolidation, chronic appearing change shown in the lungs. FINAL IMPRESSION: 1. Acute hypoxic hypercapnic respiratory failure secondary to chronic obstructive pulmonary disease exacerbation. 2. Chronic obstructive pulmonary disease exacerbation. 3. Hypertension. 4. Leukocytosis. 5. Questionable pneumonia versus bronchitis. PLAN OF TREATMENT: Continue Zithromax 500 mg IV daily, ceftriaxone 1 g IV once a day. Continue Tylenol 650 mg q.4 hours as needed for pain or fever. as needed for sedation, aspirin 81 mg daily, Atrovent q.6 hours. Continue budesonide one inhalation twice a day, BuSpar 5 mg three times a day as needed for anxiety, Cardizem 30 mg q.6 hours for heart rate control, Lovenox 40 mg subcutaneously daily, Xopenex q.4 hours as needed for shortness of breath, Solu-Medrol 40 mg IV q.6 hours, metoprolol 5 mg IV q.2 hours as needed for tachycardia, Nicoderm patch 21 mg daily. I discussed the case with the nurse at the bedside. COVID-19 is negative. The patient has severe COPD exacerbation. She is full code. Time spent around 45-50 minutes. MD YNES Salas/JEMMA /[id number]
[2020-02-27] MEDS: ENOXAPARIN SOD INJ 40 MG/0.4 ML SYR SC SCH (16:32)
--- NOTE | 2020-02-27 17:34 | NUR ---
patient reports having sob. HR up to 107, o2 sats down 88%. put back on Bi=Pap
[2020-02-27] MEDS: LEVALBUTEROL HCL SOLN NEBU 0.63 MG/3 ML NEB INH PRN (19:45)
[2020-02-27] MEDS: CEFTRIAXONE SOD 1 GM/NS 50 ML 50 ML IV SCH (22:26)
[2020-02-27] MEDS: AZITHROMYCIN 500MG/NS 250 ML 250 ML IV SCH (23:37)
[2020-02-28] VITALS (26 sets, daily range): BP systolic 84–155; BP diastolic 55–80
[2020-02-28] MEDS: ACETAMINOPHEN 325 MG TAB PO PRN (03:33)
[2020-02-28 04:41] LABS: BASOPHILS % 0.1 % (0.0-1.0); HEMATOCRIT 39.9 % (34.2-44.1); HEMOGLOBIN 12.1 g/dL (12.0-16.0); LYMPHOCYTES # (AUTO) 0.4 (1.0-3.2); LYMPHOCYTES % 3.3 % (18.0-39.1); MEAN CORPUSCULAR HGB CONC 30.3 g/dL (31-35); MEAN CORPUSCULAR VOLUME 89.1 fL (81-99); MONOCYTES # (AUTO) 0.4 (0.2-0.8); MONOCYTES % 3.8 % (4.4-11.3); NEUTROPHILS # (AUTO) 10.7 (2.1-6.9); NEUTROPHILS % 92.5 % (38.7-80.0); PLATELET COUNT 259 x10e3/uL (140-360); RED BLOOD COUNT 4.48 x10e6/uL (3.6-5.1); RED CELL DISTRIBUTION WIDTH 13.1 % (11.7-14.4)
[2020-02-28] MEDS: METHYLPREDNISOLONE SOD SUCC 40 MG/ML VIAL 1ML IV SCH ×3 (04:43→20:55)
[2020-02-28] MEDS: DILTIAZEM HCL 30 MG TAB PO SCH (04:43)
[2020-02-28 05:06] LABS: ANION GAP 9.6 mmol/L (8-16); BLOOD UREA NITROGEN 33 mg/dL (7-26); BUN/CREATININE RATIO 53 (6-25); CALCIUM 8.6 mg/dL (8.4-10.2); CHLORIDE 93 mmol/L (98-107); CREATININE, SERUM 0.62 mg/dL (0.57-1.11); EST GLOMERULAR FILTRATION RATE > 60 ML/MIN (60-); GLUCOSE 139 mg/dL (74-118); POTASSIUM 4.6 mmol/L (3.5-5.1); SODIUM 140 mmol/L (136-145)
[2020-02-28 05:15] LABS: CARBON DIOXIDE 42 mmol/L (22-29)
[2020-02-28] MEDS: IPRATROPIUM BROMIDE 0.02% 2.5 ML NEB NEB SCH ×3 (07:00→19:35)
[2020-02-28] MEDS: BUDESONIDE 90 MCG FLEXHALER IH SCH ×2 (07:00→19:00)
[2020-02-28] MEDS: LEVALBUTEROL HCL SOLN NEBU 0.63 MG/3 ML NEB INH PRN ×2 (07:00→19:35)
[2020-02-28] MEDS: ASPIRIN 81 MG ENTERIC COATED PO SCH (08:04)
[2020-02-28] MEDS: NICOTINE 21 MG/EA PATCH TOP SCH (08:04)
[2020-02-28] MEDS: DEXMEDETOMIDINE 200MCG/NS 50ML 50 ML IV PRN ×4 (08:39→22:00)
[2020-02-28] MEDS ORDERED: DILTIAZEM HCL 30 MG TAB PO SCH (09:00)
[2020-02-28] MEDS ORDERED: METOPROLOL TARTRATE INJ 1 MG/ML VIAL IV PRN (09:15)
--- NOTE | 2020-02-28 09:53 | Progress Note ---
DATE: Internal Medicine Progress Note ADDENDUM: Cardizem is going to be discontinued because of bradycardia and low blood pressure at times. We are going to use metoprolol 2.5 mg IV every 6 hours as needed for tachycardia. MD YNES Salas/JEMMA /[id number]
--- NOTE | 2020-02-28 10:34 | Progress Note ---
DATE: Internal Medicine Progress Note SUBJECTIVE: The patient is doing better, staying without anxiety, depending on oxygen. PHYSICAL EXAMINATION: VITAL SIGNS: Blood pressure 102/74, temperature 97 degrees, heart rate 53 per minute, respiratory rate 25 per minute, and oxygen saturation 100%. HEART: Showed regular rhythm. Normal S1 and S2 sound. LUNGS: Showed decreased breath sounds bilaterally. No wheezing. No rhonchi. No crackles. ABDOMEN: Soft. EXTREMITIES: Showed no edema. LABORATORY DATA: On the blood work; COVID-19 negative. On the CBC; white blood count 11.55, hemoglobin 12.1, hematocrit 39.9, and platelet count 259,000. On the BMP; sodium 140, potassium 4.6, chloride 93, CO2 42, BUN 33, creatinine 0.62, and glucose 139. Microbiology and blood cultures negative. Last chest x-ray showed perihilar peribronchial hazy opacity could be due to bronchitis. No focal lung consolidation, chronic appearing change in the lungs. FINAL IMPRESSION: 1. Chronic obstructive pulmonary disease exacerbation. 2. Acute hypoxic respiratory failure secondary to chronic obstructive pulmonary disease exacerbation. 3. Paroxysmal atrial fibrillation with tachycardia. 4. Hypertension. 5. Leukocytosis. 6. Pneumonia bronchitis. 7. Acute renal failure. PLAN OF TREATMENT: The patient is on supplemental oxygen. I am going to continue Zithromax 500 mg IV once a day and ceftriaxone 1 g IV once a day. She is on as needed for sedation, Tylenol 650 mg q.4 hours as needed for pain or fever, aspirin 81 mg daily, Atrovent q.6 hours when awake, budesonide one inhalation twice a day, BuSpar 5 mg 3 times a day as needed for anxiety, Cardizem 30 mg twice a day, Lovenox 40 mg subcutaneous daily for DVT prophylaxis, Xopenex q.4 hours as needed for shortness of breath, Solu-Medrol 40 mg IV q.6 hours, metoprolol 50 mg IV q.2 hours as needed for tachycardia, and nicotine patch 21 mg daily. Discussed the case with Dr. Daugherty and the nurse at the bedside. Labs have been reviewed. X-ray has been reviewed. Time spent around 58 minutes. The patient is in critical condition. Very poor prognosis, long-term due to severe COPD. Long-term care hospital might be an alternative for this patient, but the prognosis is very poor. MD YNES Salas/JEMMA /[id number]
--- NOTE | 2020-02-28 12:54 | Progress Note ---
DATE: Pulmonary Progress Note SUBJECTIVE: The patient feels better. She has less dyspnea. She is on Airvo with 50 L and 60%. PHYSICAL EXAMINATION: VITAL SIGNS: The blood pressure is 104/72, pulse is 65, respiratory rate is 17, and saturation is 96%. HEENT: Shows no facial swelling or erythema. LYMPHATIC: Shows no submandibular, cervical, or supraclavicular adenopathy. CARDIAC: Reveals regular rate and rhythm with normal S1 and S2. LUNGS: Auscultation of lungs reveals decreased breath sounds at bases. There is no wheezing. ABDOMEN: Soft and nontender. There is no rebound or guarding. EXTREMITIES: Show 1+ leg edema. LABORATORY DATA: BUN to creatinine ratio is 33 to 0.62. Other electrolytes are within normal limits. White blood cell count is 11.5, hemoglobin is 12.1, and the platelet count is 259. IMPRESSION: 1. Eaubv-ay-ogvcaul respiratory failure with hypercapnia. 2. Chronic obstructive pulmonary disease with acute exacerbation. 3. Severe protein-calorie malnutrition. 4. Left lower lobe pneumonia with sepsis, present on admission. 5. Atrial fibrillation. 6. Chronic leg edema. PLAN: 1. Continue to wean liter flow on Airvo. 2. Continue Solu-Medrol and bronchodilators. 3. Complete antibiotics. 4. Wean off Precedex. Vikas Daugherty MD [facility] /[id number]
[2020-02-28] MEDS: ENOXAPARIN SOD INJ 40 MG/0.4 ML SYR SC SCH (17:28)
--- NOTE | 2020-02-28 18:23 | NUR ---
Dr Medel called regarding consult, awaiting return call.
--- NOTE | 2020-02-28 19:00 | NUR ---
Report received. Assumed care. Assessment done. See interventions. IV Precedex @ 1mcg/kg/hr or 12.5ml/hr. Air Vo @ 55L & 40%. Addendum: 02/29/20 at 0041 by Yocasta Cruz RN Precedex was at 0.1 or 1.25ml/hr.
[2020-02-28] MEDS: CEFTRIAXONE SOD 1 GM/NS 50 ML 50 ML IV SCH (23:30)
[2020-02-28] MEDS: BUSPIRONE HCL 5 MG TAB PO PRN (23:33)
--- NOTE | 2020-02-28 23:33 | NUR ---
Medicated per request for anxiety.
[2020-02-29] VITALS (17 sets, daily range): BP systolic 85–151; BP diastolic 65–96
[2020-02-29] MEDS: AZITHROMYCIN 500MG/NS 250 ML 250 ML IV SCH
[2020-02-29] MEDS: IPRATROPIUM BROMIDE 0.02% 2.5 ML NEB NEB SCH ×4 (01:15→19:45)
[2020-02-29 04:40] LABS: BASOPHILS % 0.1 % (0.0-1.0); HEMATOCRIT 41.6 % (34.2-44.1); HEMOGLOBIN 12.9 g/dL (12.0-16.0); LYMPHOCYTES # (AUTO) 0.3 (1.0-3.2); LYMPHOCYTES % 1.8 % (18.0-39.1); MEAN CORPUSCULAR HEMOGLOBIN 27.3 pg (28-32); MEAN CORPUSCULAR VOLUME 88.1 fL (81-99); MONOCYTES # (AUTO) 0.6 (0.2-0.8); MONOCYTES % 4.6 % (4.4-11.3); PLATELET COUNT 278 x10e3/uL (140-360); RED BLOOD COUNT 4.72 x10e6/uL (3.6-5.1)
--- NOTE | 2020-02-29 04:55 | NUR ---
Sponge bath given. Cleaned for mod soft brown stool.
[2020-02-29 05:00] LABS: ALANINE AMINOTRANSFERASE 15 IU/L (0-55); ALBUMIN 2.4 g/dL (3.5-5.0); ALBUMIN/GLOBULIN RATIO 0.8 (0.8-2.0); ALKALINE PHOSPHATASE 49 IU/L (40-150); ANION GAP 13.2 mmol/L (8-16); BLOOD UREA NITROGEN 31 mg/dL (7-26); BUN/CREATININE RATIO 53 (6-25); CALCIUM 8.3 mg/dL (8.4-10.2); CARBON DIOXIDE 39 mmol/L (22-29); CHLORIDE 93 mmol/L (98-107); CREATININE, SERUM 0.58 mg/dL (0.57-1.11); EST GLOMERULAR FILTRATION RATE > 60 ML/MIN (60-); GLUCOSE 159 mg/dL (74-118); POTASSIUM 4.2 mmol/L (3.5-5.1); SODIUM 141 mmol/L (136-145)
[2020-02-29] MEDS ORDERED: THYROID PORK 90 MG PO SCH (06:00)
[2020-02-29] MEDS: LEVALBUTEROL HCL SOLN NEBU 0.63 MG/3 ML NEB INH PRN ×3 (07:05→19:45)
[2020-02-29] MEDS: BUDESONIDE 90 MCG FLEXHALER IH SCH ×2 (07:50→19:45)
[2020-02-29] MEDS: ASPIRIN 81 MG ENTERIC COATED PO SCH (09:52)
[2020-02-29] MEDS: DILTIAZEM HCL 30 MG TAB PO SCH ×2 (09:52→19:03)
[2020-02-29] MEDS: METHYLPREDNISOLONE SOD SUCC 40 MG/ML VIAL 1ML IV SCH ×2 (09:52→20:25)
[2020-02-29] MEDS: NICOTINE 21 MG/EA PATCH TOP SCH (09:52)
--- NOTE | 2020-02-29 11:19 | Diagnostic Imaging Report ---
TECHNIQUE: Frontal view of the chest. INDICATION: ^resp failure ^[id number] ^1050 COMPARISON: 02/26/2020 DISCUSSION: Limited evaluation due to portable technique. Lines and hardware: Multiple overlying EKG leads are noted. Heart and mediastinum: Stable. Lungs and pleura: Blunting of the left costophrenic angle with left basilar opacification and silhouetting of the left hemidiaphragm is noted. Prominent interstitial markings are again noted. Negative for large pneumothorax. Apical scarring is stable. Hazy opacities are noted at the lung bases. Soft tissues and bones: No acute abnormality. IMPRESSION: Retrocardiac and left lower lobe consolidation. Small left greater than right pleural effusions. Signed by: Duane Escobar MD on 02/29/2020 11:16 AM
--- NOTE | 2020-02-29 11:34 | Progress Note ---
DATE: Internal Medicine Progress Note SUBJECTIVE: The patient is having some palpitations. OBJECTIVE: VITAL SIGNS: Blood pressure 129/84, temperature is 98.3 degrees, heart rate 96 per minute, respiratory rate is 26 per minute, heart rate right now is 113 . HEART: Showed regular rhythm. Normal S1 and S2 tachycardia. LUNGS: Showed decreased breath sounds bilaterally. ABDOMEN: Soft. EXTREMITIES: Show no edema. LABORATORY DATA: On the blood work. BMP; sodium 141, potassium 4.2, chloride 93, CO2 of 39, BUN 31, creatinine 0.58, glucose is 159, calcium 8.3, AST 18, ALT 15, alkaline phosphatase 49, total protein 5.4, albumin 2.4. SEROLOGIES: Coronavirus not detected. Last chest x-ray showed perihilar peribronchial hazy opacity could be due to bronchitis. No focal lung consolidation, chronic appearing change in the lungs. FINAL IMPRESSION: 1. Acute hypoxic respiratory failure. 2. Acute bronchitis. 3. Sinus tachycardia. 4. History of anxiety. 5. Acute renal failure. 6. Leukocytosis. PLAN OF TREATMENT: ceftriaxone 1 g IV once a day, Tylenol 650 mg q.4 hours as needed for pain, aspirin 81 mg daily, Atrovent q.6 hours when awake, 180 mg twice a day, 5 mg three times a day as needed for anxiety. She has been restarted on Cardizem 30 mg twice a day because of tachycardia, continue Lovenox 40 subcutaneously daily for DVT prophylaxis, Xopenex q.4 hours as needed for shortness of breath, methylprednisolone 40 mg IV twice a day, metoprolol 2.5 mg IV q.6 hours for tachycardia, Nicoderm 21 mg daily. We are going to discuss the case with the nurse practitioner and fitting supervisor at the bedside. Time spent around 59 minutes reviewing labs, business analysis consultant reports, developing the plan of care. Patient may need LTAC evaluation. MD YNES Salas/MODL /[id number]
--- NOTE | 2020-02-29 11:54 | NUR ---
SPOKE WIHT PT AND SHE DEFERRED TO , CALLED PAIGE NIETO [phone], HE WOULD LIKE TO SEE HER, CALLED ADMIN DIRECTOR OF COLLECTIONS AND ARCHIVES AND GOT PERMISSION FOR HIM TO COME. ALERTED HOUSE SUP AND SUPPRESSION CREW LEADER. WILL FAX CLINICALS TO [facility] SOON HE GIVES THE GO AHEAD.
--- NOTE | 2020-02-29 12:15 | Progress Note ---
DATE: Pulmonary Critical Care Progress Note. SUBJECTIVE: The patient is currently on nasal cannula, but is having some dyspnea. She is requesting to be placed back on Airvo. PHYSICAL EXAMINATION: VITAL SIGNS: The patient is afebrile, blood pressure is 120/82, saturation is 100%, and the pulse is 100. HEENT: Shows no facial swelling or erythema. LYMPHATIC: Shows no submandibular, cervical, or supraclavicular adenopathy. CARDIAC: Reveals a regular rate and rhythm with normal S1, S2. LUNGS: Auscultation of lungs reveals prolonged expiratory phase bilaterally. There is no wheezing. ABDOMEN: Soft and nontender. There is no rebound or guarding. EXTREMITIES: Shows no leg edema or calf tenderness. There is no cyanosis or clubbing. SKIN: Shows no rashes. NEUROLOGICAL: Shows no focal abnormalities. LABORATORY DATA: White blood cell count is 13.9, hemoglobin is 12.9, and platelet count is 279. BUN to creatinine ratio is normal. Other electrolytes within normal limits. Albumin is 2.4. IMPRESSION: 1. Gcaer-yt-trmookf respiratory failure with hypercapnia. 2. Chronic obstructive pulmonary disease with acute exacerbation. 3. Severe protein-calorie malnutrition. 4. Left lower lobe pneumonia with sepsis, present on admission. 5. Atrial fibrillation. PLAN: 1. Restart patient on Airvo. 2. Continue Solu-Medrol and bronchodilators. 3. Continue antibiotics. 4. Repeat chest x-ray. 5. The patient and wished to continue with full measures at this time including mechanical ventilation and intubation, if required. Vikas Daugherty MD [facility] /[id number]
--- NOTE | 2020-02-29 14:14 | NUR ---
OBTAINED AUTH FOR PT TO GO TO [facility], COMPLETED MOT GAVE PACKET TO NURSE. GOING TO [address] [place] [address], [facility] [id number], TO ROOM [address] [facility] [phone]
--- NOTE | 2020-02-29 15:57 | NUR ---
Nutrition Intervention Note RD Recommendation(s) for Physician: - Continue current diet as tolerated - Recommend to continue Ensure Compact TID - Recommend MVI with minerals once daily for adequacy Plan of Care: RD following, monitoring for tolerance and adequacy. ONS and vitamin/mineral rec's. Nutrition reason for involvement: follow up RD Assessment 02/28: Follow up. Chart reviewed. Pt was on nasal cannula at time of visit. Pt stated she has been eating <50% of meals and pt does not like the food (ex. No seasoning, pt is on a cardiac diet) but has been drinking all of her nutrition supplement drinks. Pt was unsure of any weight changes and stated she usually weighs 110 lbs. Pt currently has a weight of 115 lbs in chart; therefore, no weight loss is evident. No N/V/D/C or chewing. Will continue to monitor. 02/25: 69 YOF admitted for COPD exacerbation and PNA. Pt evaluated today per MD consult. Pt on BiPAP at time of visits, anxious today, unable to obtain hx at this time. Pt appears well nourished. Current diet and supplement remain appropriate. Chart reviewed. Will continue to monitor. Principal Problems/Diagnoses: COPD, hypoxia, pneumonia, respiratory distress PMH: COPD GI: flat/soft/non-tender, last recorded BM 02/28 Skin: intact Labs: 02/28: Na 141, K 4.2, BUN 31, Cr 0.58, Glu 159, Ca 8.3 02/25: Na 144, K 3.4, BUN 19, Cr 0.66, Gluc 100, Ca 9.1, Phos 3.4, Mg 1.8 Meds: diltiazem, methylprednisolone, antibiotics, metoprolol Ht: 60 in Wt: 115 lb BMI: 22.5 kg/m2 IBW: 110 lb Malnutrition Evaluation (02/29/20) The patient does not meet criteria for a specified degree of malnutrition at this time. Will re-evaluate at follow-up as appropriate. Energy intake: <50% of estimated energy requirements for 5 days Weight loss: no weight loss is evident Fat loss: none observed, ample skin fold thickness Muscle loss: none observed, shoulder round Supporting Evidence: Fluid accumulation: no edema per MD note Functional Status: unable to evaluate Nutrition Prescription (Diet Order): Cardiac Estimated Nutritional Needs: 9394-4189 calories/day (25-30 kcal/kg CBW) 45-68 g protein/day (1-1.5 g pro/kg CBW) Diet Adequacy: Not meeting calorie needs, Not meeting protein needs Diet Tolerance: tolerating po Diet Education Needs Assessment: Diet education not indicated at this time. Nutrition Care Level: moderate Nutrition Diagnosis: Inadequate energy and protein intake related to current respiratory status as evidenced by not meeting needs. Goal: Patient will meet 75-100% of estimated needs by follow up Progress: goal not met Interventions: -fat, mineral-modified diet, Commercial beverage, Multivitamin/mineral supplement therapy Monitoring/Evaluation: -Total energy intake, Total protein intake, Modified diet, Liquid supplement, Weight change Signed: Neelam Nunn RD, LD
[2020-02-29] MEDS: ENOXAPARIN SOD INJ 40 MG/0.4 ML SYR SC SCH (19:03)
[2020-02-29] MEDS: ACETAMINOPHEN 325 MG TAB PO PRN (19:35)
--- NOTE | 2020-02-29 19:35 | NUR ---
Medicated for c/o back pain.
--- NOTE | 2020-02-29 20:30 | NUR ---
Report called to [facility] @ [facility].
--- NOTE | 2020-02-29 20:45 | NUR ---
Humera Gu RN, linen room houseperson, called [facility] for transfer. Advised it would be an hour before they would arrive here. Called [facility] and advised of thisl
[2020-02-29] MEDS: BUSPIRONE HCL 5 MG TAB PO PRN (22:39)
--- NOTE | 2020-02-29 22:40 | NUR ---
Medicated with Buspar per request.
--- NOTE | 2020-02-29 23:10 | NUR ---
Call from Dr. Lal. Update given. Additional MOM ordered. Addendum: 03/01/20 at 0052 by Yocasta Cruz RN Error wrong chart
[2020-02-29] MEDS: CEFTRIAXONE SOD 1 GM/NS 50 ML 50 ML IV SCH (23:35)
[2020-03-01] VITALS: BP 148/87
[2020-03-01] MEDS: AZITHROMYCIN 500MG/NS 250 ML 250 ML IV SCH
--- NOTE | 2020-03-01 00:45 | NUR ---
Transferred per EMS to [facility]. Addendum: 03/01/20 at 0055 by Yocasta Cruz RN Transferred with ekg monitor tech & [employer]. All belongings with patient.
== END 2020-03-01 00:40 | DRG 871 ==
LOC: ER 22:54 → ERHOLD 23:29 → IMCU 02-25 08:15 → ICU 02-26 19:16
PROVIDERS: ADMIT Internal Medicine; ATTEND Internal Medicine
PROC: 5A09357 Assistance with Respiratory Ventilation, Less than 24 Consecutive Hours, Continuous Positive Airway Pressure (ICD-10-PCS; principal; 2020-02-24)
DX: A41.9 Sepsis, unspecified organism (principal); E43 Unspecified severe protein-calorie malnutrition; J15.9 Unspecified bacterial pneumonia; J96.21 Acute and chronic respiratory failure with hypoxia; J96.22 Acute and chronic respiratory failure with hypercapnia; J90 Pleural effusion, not elsewhere classified; J44.1 Chronic obstructive pulmonary disease with (acute) exacerbation; I48.20 Chronic atrial fibrillation, unspecified; N17.9 Acute kidney failure, unspecified; J44.0 Chronic obstructive pulmonary disease with (acute) lower respiratory infection; F17.210 Nicotine dependence, cigarettes, uncomplicated; J30.89 Other allergic rhinitis; Z88.0 Allergy status to penicillin; Z99.81 Dependence on supplemental oxygen; Z82.49 Family history of ischemic heart disease and other diseases of the circulatory system; I27.81 Cor pulmonale (chronic); E03.9 Hypothyroidism, unspecified; F41.9 Anxiety disorder, unspecified; E87.6 Hypokalemia; Z11.59 Encounter for screening for other viral diseases; Z68.22 Body mass index [BMI] 22.0-22.9, adult
CPT/HCPCS: 36415; 36600; 71045; 76604; 80048; 80053; 82550; 82553; 82805; 82948; 83605; 83735; 83880; 84100; 84484; 85025; 87040; 87070; 87205; 93005; 93306; 94640; 94660; 97139; 99285; J0456; J0696; J1160; J1650; J1940; J1956; J2920; J2930; J3370; J7030; J7633

== ENCOUNTER → 2020-03-26 | Outpatient (CLI) | payer MEDICARE, OTHER ==
[~2020-03-26] MED LIST changes: -BACTRIM DS TAB1 EACH PO; -ELIQUIS5 M1; -LASIX40 MG PO; -POTASSIUM CHLO20 ME1; -PREDNISONE10 MG PO; -ZPAK PO
--- NOTE | 2020-03-26 13:22 | Diagnostic Imaging Report ---
EXAMINATION: CHEST 2 VIEWS INDICATION: Chronic obstructive pulmonary disease ^[id number] ^1253 ^CHRONIC OBSTRUCTIVE PULMONARY DISEASE COMPARISON: 02/29/2020. CT scan 02/21/2020. FINDINGS: TUBES and LINES: None. LUNGS: Chronic appearing changes in the lungs with hyperinflation. No consolidated pneumonia. PLEURA: No pleural effusion or pneumothorax. HEART AND MEDIASTINUM: The cardiomediastinal silhouette is unremarkable. BONES AND SOFT TISSUES: No acute osseous lesion. Soft tissues are unremarkable. UPPER ABDOMEN: No free air under the diaphragm. IMPRESSION: Chronic appearing changes in the lungs with hyperinflation. No consolidated pneumonia. Signed by: Dr. Bradford Curtis M.D. on 03/26/2020 1:19 PM
== END ==
LOC: RAD 12:36
PROVIDERS: ATTEND Internal Medicine
DX: J44.9 Chronic obstructive pulmonary disease, unspecified (principal)
CPT/HCPCS: 71046

== ENCOUNTER 2020-04-03 09:43 | Inpatient (IN) | payer MEDICARE, OTHER ==
[2020-04-03] VITALS (8 sets, daily range): BP systolic 95–109; BP diastolic 64–82
[~2020-04-03] VITALS: Ht 160 cm; Wt 50.9 kg
[2020-04-03 10:25] LABS: BASOPHILS # (AUTO) 0.1 (0.0-0.1); BASOPHILS % 0.5 % (0.0-1.0); EOSINOPHILS % 0.3 % (0.0-6.0); HEMATOCRIT 41.8 % (34.2-44.1); HEMOGLOBIN 12.7 g/dL (12.0-16.0); LYMPHOCYTES # (AUTO) 1.2 (1.0-3.2); LYMPHOCYTES % 12.8 % (18.0-39.1); MEAN CORPUSCULAR HGB CONC 30.4 g/dL (31-35); MEAN CORPUSCULAR VOLUME 88.7 fL (81-99); MONOCYTES % 10.2 % (4.4-11.3); NEUTROPHILS # (AUTO) 7.2 (2.1-6.9); NEUTROPHILS % 75.7 % (38.7-80.0); PLATELET COUNT 459 x10e3/uL (140-360); RED BLOOD COUNT 4.71 x10e6/uL (3.6-5.1); RED CELL DISTRIBUTION WIDTH 13.5 % (11.7-14.4)
[2020-04-03] MEDS ORDERED: IPRATROPIUM BROMIDE 0.02% 2.5 ML NEB NEB ONE (10:30)
[2020-04-03] MEDS ORDERED: DEXAMETHASONE SOD PHOS 10 MG/1 ML VIAL IV ONE (10:30)
[2020-04-03 10:37] LABS: ALBUMIN 3.8 g/dL (3.5-5.0); ALBUMIN/GLOBULIN RATIO 0.9 (0.8-2.0); ANION GAP 13.8 mmol/L (8-16); CALCIUM 9.7 mg/dL (8.4-10.2); CREATININE, SERUM 0.98 mg/dL (0.57-1.11); POTASSIUM 4.8 mmol/L (3.5-5.1)
[2020-04-03] MEDS: SODIUM CHLORIDE 0.9% 1000ML 1,000 ML IV SCH ×2 (11:36→19:27)
[2020-04-03] MEDS ORDERED: CEFTRIAXONE SOD 1 GM/NS 50 ML 50 ML IV ONE (12:00)
[2020-04-03] MEDS: ALBUTEROL SULF 0.083% NEB SOLN 3 ML NEB NEB PRN (13:20)
[2020-04-03] MEDS ORDERED: ELIQUIS5 M1 (14:31)
[2020-04-03] MEDS ORDERED: LASIX40 MG PO (14:31)
[2020-04-03] MEDS ORDERED: POTASSIUM CHLO20 ME1 (14:31)
[2020-04-03] MEDS ORDERED: BACTRIM DS TAB1 EACH PO (14:31)
[2020-04-03] MEDS ORDERED: THEOPHYLLINE 200 MG TABCR PO SCH (21:00)
[2020-04-03] MEDS ORDERED: THYROID 60 MG TAB PO SCH (22:00)
[2020-04-03] MEDS: MONTELUKAST SODIUM 10 MG TAB PO SCH (22:02)
[2020-04-03] MEDS: APIXABAN 5 MG TABLET PO SCH (22:08)
[2020-04-04] VITALS (7 sets, daily range): BP systolic 93–112; BP diastolic 66–80
[2020-04-04] MEDS: ALBUTEROL SULF 0.083% NEB SOLN 3 ML NEB NEB PRN
[2020-04-04] MEDS: SODIUM CHLORIDE 0.9% 1000ML 1,000 ML IV SCH (03:24)
[2020-04-04 06:05] LABS: BASOPHILS % 0.2 % (0.0-1.0); HEMATOCRIT 34.8 % (34.2-44.1); HEMOGLOBIN 10.5 g/dL (12.0-16.0); LYMPHOCYTES # (AUTO) 1.4 (1.0-3.2); LYMPHOCYTES % 13.6 % (18.0-39.1); MEAN CORPUSCULAR HEMOGLOBIN 27.1 pg (28-32); MEAN CORPUSCULAR HGB CONC 30.2 g/dL (31-35); MEAN CORPUSCULAR VOLUME 89.7 fL (81-99); MONOCYTES % 9.9 % (4.4-11.3); NEUTROPHILS # (AUTO) 7.6 (2.1-6.9); NEUTROPHILS % 75.9 % (38.7-80.0); PLATELET COUNT 384 x10e3/uL (140-360); RED BLOOD COUNT 3.88 x10e6/uL (3.6-5.1); RED CELL DISTRIBUTION WIDTH 13.5 % (11.7-14.4)
[2020-04-04 06:23] LABS: ANION GAP 10.7 mmol/L (8-16); BLOOD UREA NITROGEN 21 mg/dL (7-26); BUN/CREATININE RATIO 27 (6-25); CALCIUM 9.1 mg/dL (8.4-10.2); CARBON DIOXIDE 36 mmol/L (22-29); CHLORIDE 97 mmol/L (98-107); CREATININE, SERUM 0.78 mg/dL (0.57-1.11); EST GLOMERULAR FILTRATION RATE > 60 ML/MIN (60-); GLUCOSE 76 mg/dL (74-118); POTASSIUM 4.7 mmol/L (3.5-5.1); SODIUM 139 mmol/L (136-145)
[2020-04-04] MEDS: TRIMETHOPRIM/SULFAMETHOXAZOLE 160-800 MG TAB PO SCH ×2 (09:18→17:18)
[2020-04-04] MEDS: NEBIVOLOL 10 MG TAB PO SCH (09:18)
[2020-04-04] MEDS: THEOPHYLLINE 200 MG TABCR PO SCH (09:19)
[2020-04-04] MEDS: FUROSEMIDE 40 MG TAB PO SCH (09:19)
[2020-04-04] MEDS: POTASSIUM CHLORIDE 20 MEQ TAB CR PO SCH (09:19)
[2020-04-04] MEDS: APIXABAN 5 MG TABLET PO SCH ×2 (09:19→17:18)
[2020-04-04] MEDS: ALBUTEROL SULF 0.083% NEB SOLN 3 ML NEB NEB SCH ×4 (09:43→23:15)
[2020-04-04] MEDS: PREDNISONE 20 MG TAB PO SCH (12:46)
[2020-04-04] MEDS: CEFTRIAXONE SOD 2 GM/NS 100 ML 100 ML IV SCH (12:47)
[2020-04-04] MEDS: MONTELUKAST SODIUM 10 MG TAB PO SCH (21:43)
[2020-04-04] MEDS: THYROID 60 MG TAB PO SCH (21:43)
[2020-04-05] VITALS (7 sets, daily range): BP systolic 109–116; BP diastolic 43–74
[2020-04-05] MEDS: ALBUTEROL SULF 0.083% NEB SOLN 3 ML NEB NEB SCH ×6 (03:00→23:15)
[2020-04-05] MEDS: TIOTROPIUM 18 MCG INH POWDER INH SCH ×2 (06:00→23:00)
[2020-04-05] MEDS: SALMETEROL/FLUTICASONE 250/50 INH SCH ×2 (07:00→20:51)
[2020-04-05] MEDS: TRIMETHOPRIM/SULFAMETHOXAZOLE 160-800 MG TAB PO SCH ×2 (09:45→18:24)
[2020-04-05] MEDS: APIXABAN 5 MG TABLET PO SCH ×2 (09:46→18:24)
[2020-04-05] MEDS: NEBIVOLOL 10 MG TAB PO SCH (09:46)
[2020-04-05] MEDS: POTASSIUM CHLORIDE 20 MEQ TAB CR PO SCH (09:47)
[2020-04-05] MEDS: FUROSEMIDE 40 MG TAB PO SCH (09:47)
[2020-04-05] MEDS: PREDNISONE 20 MG TAB PO SCH (09:47)
[2020-04-05] MEDS: THEOPHYLLINE 200 MG TABCR PO SCH (09:48)
[2020-04-05] MEDS: CEFTRIAXONE SOD 2 GM/NS 100 ML 100 ML IV SCH (14:14)
[2020-04-05] MEDS: MONTELUKAST SODIUM 10 MG TAB PO SCH (20:51)
[2020-04-05] MEDS: THYROID 60 MG TAB PO SCH (21:00)
[2020-04-06] VITALS (12 sets, daily range): BP systolic 102–121; BP diastolic 71–82
[2020-04-06] MEDS: ALBUTEROL SULF 0.083% NEB SOLN 3 ML NEB NEB SCH ×6 (03:45→23:20)
[2020-04-06] MEDS: SALMETEROL/FLUTICASONE 250/50 INH SCH ×2 (07:00→19:00)
[2020-04-06] MEDS: NEBIVOLOL 10 MG TAB PO SCH (09:06)
[2020-04-06] MEDS: APIXABAN 5 MG TABLET PO SCH ×2 (09:07→16:28)
[2020-04-06] MEDS: TRIMETHOPRIM/SULFAMETHOXAZOLE 160-800 MG TAB PO SCH (09:07)
[2020-04-06] MEDS: THEOPHYLLINE 200 MG TABCR PO SCH (09:08)
[2020-04-06] MEDS: POTASSIUM CHLORIDE 20 MEQ TAB CR PO SCH (09:08)
[2020-04-06] MEDS: FUROSEMIDE 40 MG TAB PO SCH (09:08)
[2020-04-06] MEDS: PREDNISONE 20 MG TAB PO SCH (09:08)
[2020-04-06] MEDS: CEFEPIME 1GM/NS 0.9% 50 ML 50 ML IV SCH ×2 (10:09→21:28)
[2020-04-06] MEDS: AZITHROMYCIN 500MG/NS 250 ML 250 ML IV SCH (10:09)
[2020-04-06 11:18] LABS: BASOPHILS # (AUTO) 0.1 (0.0-0.1); BASOPHILS % 0.5 % (0.0-1.0); EOSINOPHILS % 0.1 % (0.0-6.0); HEMATOCRIT 36.3 % (34.2-44.1); HEMOGLOBIN 10.8 g/dL (12.0-16.0); LYMPHOCYTES # (AUTO) 1.5 (1.0-3.2); LYMPHOCYTES % 12.4 % (18.0-39.1); MEAN CORPUSCULAR HEMOGLOBIN 26.6 pg (28-32); MEAN CORPUSCULAR HGB CONC 29.8 g/dL (31-35); MEAN CORPUSCULAR VOLUME 89.4 fL (81-99); MONOCYTES # (AUTO) 1.3 (0.2-0.8); MONOCYTES % 10.1 % (4.4-11.3); NEUTROPHILS # (AUTO) 9.5 (2.1-6.9); NEUTROPHILS % 76.4 % (38.7-80.0); PLATELET COUNT 421 x10e3/uL (140-360); RED BLOOD COUNT 4.06 x10e6/uL (3.6-5.1); RED CELL DISTRIBUTION WIDTH 13.7 % (11.7-14.4)
[2020-04-06 11:39] LABS: ALANINE AMINOTRANSFERASE 11 IU/L (0-55); ALBUMIN 3.2 g/dL (3.5-5.0); ALBUMIN/GLOBULIN RATIO 0.9 (0.8-2.0); ALKALINE PHOSPHATASE 76 IU/L (40-150); ANION GAP 13.3 mmol/L (8-16); BLOOD UREA NITROGEN 21 mg/dL (7-26); BUN/CREATININE RATIO 28 (6-25); CALCIUM 8.8 mg/dL (8.4-10.2); CARBON DIOXIDE 36 mmol/L (22-29); CHLORIDE 96 mmol/L (98-107); CREATININE, SERUM 0.74 mg/dL (0.57-1.11); EST GLOMERULAR FILTRATION RATE > 60 ML/MIN (60-); GLUCOSE 81 mg/dL (74-118); POTASSIUM 4.3 mmol/L (3.5-5.1); SODIUM 141 mmol/L (136-145)
[2020-04-06] MEDS: SALINE 0.65% NAS SOLN 1 SPRAY BTL SCH ×2 (15:44→21:00)
[2020-04-06] MEDS ORDERED: SODIUM CHLORIDE 0.9% 250ML 250 ML ONE (21:27)
[2020-04-06] MEDS: MONTELUKAST SODIUM 10 MG TAB PO SCH (21:28)
[2020-04-06] MEDS: THYROID 60 MG TAB PO SCH (21:33)
[2020-04-07] VITALS (8 sets, daily range): BP systolic 102–115; BP diastolic 63–78
[2020-04-07] MEDS: ALBUTEROL SULF 0.083% NEB SOLN 3 ML NEB NEB SCH ×6 (02:25→23:10)
[2020-04-07] MEDS: TIOTROPIUM 18 MCG INH POWDER INH SCH (06:00)
[2020-04-07] MEDS: SALMETEROL/FLUTICASONE 250/50 INH SCH ×2 (06:10→19:00)
[2020-04-07 07:00] LABS: BASOPHILS % 0.4 % (0.0-1.0); EOSINOPHILS % 0.3 % (0.0-6.0); HEMATOCRIT 39.6 % (34.2-44.1); HEMOGLOBIN 11.7 g/dL (12.0-16.0); LYMPHOCYTES # (AUTO) 2.2 (1.0-3.2); LYMPHOCYTES % 19.7 % (18.0-39.1); MEAN CORPUSCULAR HEMOGLOBIN 27.2 pg (28-32); MEAN CORPUSCULAR HGB CONC 29.5 g/dL (31-35); MEAN CORPUSCULAR VOLUME 92.1 fL (81-99); MONOCYTES % 9.1 % (4.4-11.3); NEUTROPHILS # (AUTO) 7.6 (2.1-6.9); NEUTROPHILS % 69.8 % (38.7-80.0); PLATELET COUNT 430 x10e3/uL (140-360); RED CELL DISTRIBUTION WIDTH 13.9 % (11.7-14.4)
[2020-04-07 08:00] LABS: ALANINE AMINOTRANSFERASE 10 IU/L (0-55); ALBUMIN 3.2 g/dL (3.5-5.0); ALBUMIN/GLOBULIN RATIO 0.9 (0.8-2.0); ALKALINE PHOSPHATASE 71 IU/L (40-150); ANION GAP 11.8 mmol/L (8-16); BLOOD UREA NITROGEN 22 mg/dL (7-26); BUN/CREATININE RATIO 32 (6-25); CALCIUM 8.8 mg/dL (8.4-10.2); CARBON DIOXIDE 37 mmol/L (22-29); CHLORIDE 97 mmol/L (98-107); CREATININE, SERUM 0.69 mg/dL (0.57-1.11); EST GLOMERULAR FILTRATION RATE > 60 ML/MIN (60-); GLUCOSE 68 mg/dL (74-118); POTASSIUM 3.8 mmol/L (3.5-5.1); SODIUM 142 mmol/L (136-145)
[2020-04-07] MEDS: POTASSIUM CHLORIDE 20 MEQ TAB CR PO SCH (08:43)
[2020-04-07] MEDS: APIXABAN 5 MG TABLET PO SCH ×2 (08:43→17:34)
[2020-04-07] MEDS: FUROSEMIDE 40 MG TAB PO SCH (08:43)
[2020-04-07] MEDS: PREDNISONE 20 MG TAB PO SCH (08:43)
[2020-04-07] MEDS: THEOPHYLLINE 200 MG TABCR PO SCH (08:43)
[2020-04-07] MEDS: NEBIVOLOL 10 MG TAB PO SCH (08:43)
[2020-04-07] MEDS: SALINE 0.65% NAS SOLN 1 SPRAY BTL SCH ×3 (08:43→21:41)
[2020-04-07] MEDS: CEFEPIME 1GM/NS 0.9% 50 ML 50 ML IV SCH ×2 (09:18→21:41)
[2020-04-07] MEDS: AZITHROMYCIN 500MG/NS 250 ML 250 ML IV SCH (09:18)
[2020-04-07] MEDS: THYROID 60 MG TAB PO SCH (21:41)
[2020-04-07] MEDS: MONTELUKAST SODIUM 10 MG TAB PO SCH (21:41)
[2020-04-08] VITALS (8 sets, daily range): BP systolic 101–129; BP diastolic 61–74
[2020-04-08] MEDS: ALBUTEROL SULF 0.083% NEB SOLN 3 ML NEB NEB SCH ×6 (02:45→23:00)
[2020-04-08] MEDS: SALMETEROL/FLUTICASONE 250/50 INH SCH ×2 (05:16→19:00)
[2020-04-08] MEDS: TIOTROPIUM 18 MCG INH POWDER INH SCH (05:16)
[2020-04-08 06:04] LABS: BASOPHILS % 0.4 % (0.0-1.0); EOSINOPHILS % 0.2 % (0.0-6.0); HEMATOCRIT 36.4 % (34.2-44.1); HEMOGLOBIN 10.6 g/dL (12.0-16.0); LYMPHOCYTES # (AUTO) 1.9 (1.0-3.2); LYMPHOCYTES % 17.6 % (18.0-39.1); MEAN CORPUSCULAR HEMOGLOBIN 26.8 pg (28-32); MEAN CORPUSCULAR HGB CONC 29.1 g/dL (31-35); MEAN CORPUSCULAR VOLUME 91.9 fL (81-99); MONOCYTES % 8.9 % (4.4-11.3); NEUTROPHILS # (AUTO) 7.9 (2.1-6.9); PLATELET COUNT 413 x10e3/uL (140-360); RED BLOOD COUNT 3.96 x10e6/uL (3.6-5.1); RED CELL DISTRIBUTION WIDTH 13.9 % (11.7-14.4)
[2020-04-08 06:50] LABS: ANION GAP 9.8 mmol/L (8-16); BLOOD UREA NITROGEN 28 mg/dL (7-26); BUN/CREATININE RATIO 46 (6-25); CALCIUM 8.5 mg/dL (8.4-10.2); CARBON DIOXIDE 38 mmol/L (22-29); CHLORIDE 100 mmol/L (98-107); CREATININE, SERUM 0.61 mg/dL (0.57-1.11); EST GLOMERULAR FILTRATION RATE > 60 ML/MIN (60-); GLUCOSE 75 mg/dL (74-118); POTASSIUM 3.8 mmol/L (3.5-5.1); SODIUM 144 mmol/L (136-145)
[2020-04-08] MEDS: PREDNISONE 20 MG TAB PO SCH (09:00)
[2020-04-08] MEDS: APIXABAN 5 MG TABLET PO SCH ×2 (09:00→17:15)
[2020-04-08] MEDS: POTASSIUM CHLORIDE 20 MEQ TAB CR PO SCH (09:00)
[2020-04-08] MEDS: FUROSEMIDE 40 MG TAB PO SCH (09:00)
[2020-04-08] MEDS: SALINE 0.65% NAS SOLN 1 SPRAY BTL SCH ×3 (09:00→20:35)
[2020-04-08] MEDS: THEOPHYLLINE 200 MG TABCR PO SCH (09:01)
[2020-04-08] MEDS: NEBIVOLOL 10 MG TAB PO SCH (09:02)
[2020-04-08] MEDS: CEFEPIME 1GM/NS 0.9% 50 ML 50 ML IV SCH (14:00)
[2020-04-08] MEDS ORDERED: SODIUM CHLORIDE 0.9% 250ML 250 ML ONE (14:02)
[2020-04-08] MEDS: AZITHROMYCIN 500MG/NS 250 ML 250 ML IV SCH (14:46)
[2020-04-08] MEDS: THYROID 60 MG TAB PO SCH (20:35)
[2020-04-08] MEDS: MONTELUKAST SODIUM 10 MG TAB PO SCH (20:35)
[2020-04-09] VITALS (7 sets, daily range): BP systolic 97–131; BP diastolic 60–83
[2020-04-09] MEDS: CEFEPIME 1GM/NS 0.9% 50 ML 50 ML IV SCH ×2 (01:19→12:39)
[2020-04-09] MEDS: TIOTROPIUM 18 MCG INH POWDER INH SCH (03:17)
[2020-04-09] MEDS: SALMETEROL/FLUTICASONE 250/50 INH SCH ×2 (03:17→19:00)
[2020-04-09] MEDS: ALBUTEROL SULF 0.083% NEB SOLN 3 ML NEB NEB SCH ×6 (03:45→23:40)
[2020-04-09] MEDS: FUROSEMIDE 40 MG TAB PO SCH (08:27)
[2020-04-09] MEDS: THEOPHYLLINE 200 MG TABCR PO SCH (08:27)
[2020-04-09] MEDS: APIXABAN 5 MG TABLET PO SCH ×2 (08:27→17:24)
[2020-04-09] MEDS: NEBIVOLOL 10 MG TAB PO SCH (08:27)
[2020-04-09] MEDS: PREDNISONE 20 MG TAB PO SCH (08:27)
[2020-04-09] MEDS: POTASSIUM CHLORIDE 20 MEQ TAB CR PO SCH (08:27)
[2020-04-09] MEDS: SALINE 0.65% NAS SOLN 1 SPRAY BTL SCH ×3 (08:28→21:00)
[2020-04-09] MEDS: AZITHROMYCIN 500MG/NS 250 ML 250 ML IV SCH (13:29)
[2020-04-09] MEDS: THYROID 60 MG TAB PO SCH (21:20)
[2020-04-09] MEDS: MONTELUKAST SODIUM 10 MG TAB PO SCH (21:20)
[2020-04-10] VITALS: BP 112/87
[2020-04-10] MEDS: CEFEPIME 1GM/NS 0.9% 50 ML 50 ML IV SCH (00:32)
[2020-04-10] MEDS: TIOTROPIUM 18 MCG INH POWDER INH SCH (03:22)
[2020-04-10] MEDS: ALBUTEROL SULF 0.083% NEB SOLN 3 ML NEB NEB SCH ×3 (03:30→11:50)
[2020-04-10] MEDS: SALMETEROL/FLUTICASONE 250/50 INH SCH (03:45)
[2020-04-10 04:00] VITALS: BP 121/77
[2020-04-10 07:59] VITALS: BP 117/72
[2020-04-10] MEDS: SALINE 0.65% NAS SOLN 1 SPRAY BTL SCH (08:06)
[2020-04-10] MEDS: POTASSIUM CHLORIDE 20 MEQ TAB CR PO SCH (08:08)
[2020-04-10] MEDS: THEOPHYLLINE 200 MG TABCR PO SCH (08:08)
[2020-04-10] MEDS: NEBIVOLOL 10 MG TAB PO SCH (08:09)
[2020-04-10] MEDS: PREDNISONE 20 MG TAB PO SCH (08:09)
[2020-04-10] MEDS: FUROSEMIDE 40 MG TAB PO SCH (08:09)
[2020-04-10] MEDS: APIXABAN 5 MG TABLET PO SCH (08:09)
[2020-04-10 08:46] VITALS: BP 117/72
[2020-04-10 11:56] VITALS: BP 127/65
[2020-04-10] MEDS ORDERED: ZPAK PO (12:37)
[2020-04-10] MEDS ORDERED: PREDNISONE10 MG PO (12:38)
== END 2020-04-10 14:00 | disposition home health service (06) | DRG 190 ==
LOC: ER 10:37 → ERHOLD 11:52 → MED/SURG3 12:58 → OBSVTOIN 04-06 09:51
PROVIDERS: ADMIT Internal Medicine; ATTEND Internal Medicine
DX: J44.0 Chronic obstructive pulmonary disease with (acute) lower respiratory infection (principal); J96.22 Acute and chronic respiratory failure with hypercapnia; J96.21 Acute and chronic respiratory failure with hypoxia; E44.0 Moderate protein-calorie malnutrition; Z68.1 Body mass index [BMI] 19.9 or less, adult; J44.1 Chronic obstructive pulmonary disease with (acute) exacerbation; E03.9 Hypothyroidism, unspecified; I48.0 Paroxysmal atrial fibrillation; Z72.0 Tobacco use; Z99.81 Dependence on supplemental oxygen; E05.90 Thyrotoxicosis, unspecified without thyrotoxic crisis or storm; J20.9 Acute bronchitis, unspecified; Z88.0 Allergy status to penicillin; Z20.828 Contact with and (suspected) exposure to other viral communicable diseases
CPT/HCPCS: 36415; 71045; 80048; 80053; 80198; 83605; 83880; 84439; 84443; 84481; 84484; 85025; 87040; 93005; 94640; 97139; 99284; G0378; J0456; J0692; J0696; J1100; J7030; J7050; J7512; U0002

== ENCOUNTER 2020-05-21 17:18 | Inpatient (IN) | payer MEDICARE, OTHER ==
[~2020-05-21] VITALS: Ht 160 cm; Wt 49.9 kg
[~2020-05-21 17:18] MED LIST changes: +BACTRIM DS TAB1 EACH PO; +ELIQUIS5 M1; +LASIX40 MG PO; +POTASSIUM CHLO20 ME1; +PREDNISONE10 MG PO; +ZPAK PO
[2020-05-21] MEDS ORDERED: ALBUTEROL/IPRATROPIUM 3 ML NEB NEB STA (18:18)
[2020-05-21 18:19] LABS: BASOPHILS # (AUTO) 0.1 (0.0-0.1); BASOPHILS % 0.5 % (0.0-1.0); EOSINOPHILS % 0.1 % (0.0-6.0); HEMATOCRIT 42.1 % (34.2-44.1); HEMOGLOBIN 12.5 g/dL (12.0-16.0); LYMPHOCYTES # (AUTO) 1.6 (1.0-3.2); LYMPHOCYTES % 15.6 % (18.0-39.1); MEAN CORPUSCULAR HEMOGLOBIN 26.9 pg (28-32); MEAN CORPUSCULAR HGB CONC 29.7 g/dL (31-35); MEAN CORPUSCULAR VOLUME 90.7 fL (81-99); MONOCYTES # (AUTO) 0.7 (0.2-0.8); MONOCYTES % 7.3 % (4.4-11.3); NEUTROPHILS # (AUTO) 7.7 (2.1-6.9); NEUTROPHILS % 76.1 % (38.7-80.0); PLATELET COUNT 316 x10e3/uL (140-360); RED BLOOD COUNT 4.64 x10e6/uL (3.6-5.1); RED CELL DISTRIBUTION WIDTH 13.5 % (11.7-14.4)
[2020-05-21 18:55] LABS: BASOPHILS % 0.5 % (0.0-1.0); EOSINOPHILS % 0.1 % (0.0-6.0); HEMATOCRIT 42.5 % (34.2-44.1); HEMOGLOBIN 12.5 g/dL (12.0-16.0); LYMPHOCYTES # (AUTO) 0.5 (1.0-3.2); MEAN CORPUSCULAR HEMOGLOBIN 26.7 pg (28-32); MEAN CORPUSCULAR HGB CONC 29.4 g/dL (31-35); MEAN CORPUSCULAR VOLUME 90.8 fL (81-99); MONOCYTES # (AUTO) 0.2 (0.2-0.8); MONOCYTES % 2.8 % (4.4-11.3); NEUTROPHILS # (AUTO) 7.8 (2.1-6.9); NEUTROPHILS % 90.3 % (38.7-80.0); PLATELET COUNT 332 x10e3/uL (140-360); RED BLOOD COUNT 4.68 x10e6/uL (3.6-5.1); RED CELL DISTRIBUTION WIDTH 13.5 % (11.7-14.4)
[2020-05-21 19:18] LABS: ALANINE AMINOTRANSFERASE 7 IU/L (0-55); ALBUMIN 3.5 g/dL (3.5-5.0); ALBUMIN/GLOBULIN RATIO 0.9 (0.8-2.0); ALKALINE PHOSPHATASE 77 IU/L (40-150); ANION GAP 11.6 mmol/L (8-16); BLOOD UREA NITROGEN 12 mg/dL (7-26); BUN/CREATININE RATIO 19 (6-25); CALCIUM 9.2 mg/dL (8.4-10.2); CHLORIDE 92 mmol/L (98-107); CREATININE, SERUM 0.63 mg/dL (0.57-1.11); EST GLOMERULAR FILTRATION RATE > 60 ML/MIN (60-); GLUCOSE 98 mg/dL (74-118); POTASSIUM 3.6 mmol/L (3.5-5.1); SODIUM 144 mmol/L (136-145)
[2020-05-21 19:20] LABS: CARBON DIOXIDE 44 mmol/L (22-29)
[2020-05-21] MEDS ORDERED: ASPIRIN 325 MG TAB PO ONE (19:45)
[2020-05-21] MEDS ORDERED: HEPARIN 25,000 UNIT 600 UNIT in DEXTROSE 5% 250ML 250 ML IV SCH (20:00)
[2020-05-21] MEDS ORDERED: HEPARIN 25,000 UNIT DRIP IV ONE (21:13)
[2020-05-22] VITALS (8 sets, daily range): BP systolic 133–169; BP diastolic 71–96
[2020-05-22 05:36] LABS: BASOPHILS % 0.1 % (0.0-1.0); HEMATOCRIT 40.9 % (34.2-44.1); HEMOGLOBIN 12.5 g/dL (12.0-16.0); LYMPHOCYTES % 13.1 % (18.0-39.1); MEAN CORPUSCULAR HEMOGLOBIN 27.5 pg (28-32); MEAN CORPUSCULAR HGB CONC 30.6 g/dL (31-35); MEAN CORPUSCULAR VOLUME 89.9 fL (81-99); MONOCYTES # (AUTO) 0.7 (0.2-0.8); MONOCYTES % 9.1 % (4.4-11.3); NEUTROPHILS # (AUTO) 5.8 (2.1-6.9); NEUTROPHILS % 77.4 % (38.7-80.0); PLATELET COUNT 328 x10e3/uL (140-360); RED BLOOD COUNT 4.55 x10e6/uL (3.6-5.1); RED CELL DISTRIBUTION WIDTH 13.5 % (11.7-14.4)
[2020-05-22] MEDS ORDERED: ALBUTEROL SULF 0.083% NEB SOLN 3 ML NEB NEB PRN (05:45)
[2020-05-22] MEDS ORDERED: IPRATROPIUM BROMIDE 0.02% 2.5 ML NEB NEB PRN (05:45)
[2020-05-22] MEDS: ALBUTEROL SULF 0.083% NEB SOLN 3 ML NEB NEB SCH ×5 (05:49→22:20)
[2020-05-22] MEDS: IPRATROPIUM BROMIDE 0.02% 2.5 ML NEB NEB SCH ×5 (05:49→22:12)
[2020-05-22 06:04] LABS: ANION GAP 12.9 mmol/L (8-16); BLOOD UREA NITROGEN 18 mg/dL (7-26); BUN/CREATININE RATIO 27 (6-25); CALCIUM 9.1 mg/dL (8.4-10.2); CHLORIDE 91 mmol/L (98-107); CREATININE, SERUM 0.66 mg/dL (0.57-1.11); EST GLOMERULAR FILTRATION RATE > 60 ML/MIN (60-); GLUCOSE 98 mg/dL (74-118); POTASSIUM 3.9 mmol/L (3.5-5.1); SODIUM 143 mmol/L (136-145)
[2020-05-22 06:06] LABS: CARBON DIOXIDE 43 mmol/L (22-29)
[2020-05-22] MEDS ORDERED: IPRATROPIUM BROMIDE 0.02% 2.5 ML NEB NEB SCH (07:00)
[2020-05-22] MEDS ORDERED: ALBUTEROL SULF 0.083% NEB SOLN 3 ML NEB NEB SCH (07:00)
[2020-05-22] MEDS: MONTELUKAST SODIUM 10 MG TAB PO SCH (17:22)
[2020-05-22] MEDS: METHYLPREDNISOLONE SOD SUCC 40 MG/ML VIAL 1ML IV SCH (18:31)
[2020-05-22] MEDS: SALMETEROL/FLUTICASONE 250/50 INH SCH (18:38)
[2020-05-22] MEDS: ENOXAPARIN SOD INJ 40 MG/0.4 ML SYR SC SCH (20:33)
[2020-05-22] MEDS: DOXYCYCLINE HYCLATE 100 MG in SODIUM CHLORIDE 0.9% 100 ML 100 ML IV SCH (20:33)
[2020-05-22] MEDS ORDERED: SODIUM CHLORIDE 0.9% 250ML 250 ML ONE (20:49)
[2020-05-23] VITALS (7 sets, daily range): BP systolic 105–133; BP diastolic 75–85
[2020-05-23] MEDS: IPRATROPIUM BROMIDE 0.02% 2.5 ML NEB NEB SCH ×6 (03:00→23:15)
[2020-05-23] MEDS: ALBUTEROL SULF 0.083% NEB SOLN 3 ML NEB NEB SCH ×6 (03:00→23:15)
[2020-05-23 05:17] LABS: BASOPHILS % 0.2 % (0.0-1.0); HEMATOCRIT 38.8 % (34.2-44.1); HEMOGLOBIN 11.5 g/dL (12.0-16.0); LYMPHOCYTES # (AUTO) 0.8 (1.0-3.2); LYMPHOCYTES % 11.5 % (18.0-39.1); MEAN CORPUSCULAR HEMOGLOBIN 27.3 pg (28-32); MEAN CORPUSCULAR HGB CONC 29.6 g/dL (31-35); MEAN CORPUSCULAR VOLUME 91.9 fL (81-99); MONOCYTES # (AUTO) 0.4 (0.2-0.8); MONOCYTES % 6.6 % (4.4-11.3); NEUTROPHILS # (AUTO) 5.4 (2.1-6.9); NEUTROPHILS % 81.5 % (38.7-80.0); PLATELET COUNT 282 x10e3/uL (140-360); RED BLOOD COUNT 4.22 x10e6/uL (3.6-5.1); RED CELL DISTRIBUTION WIDTH 13.3 % (11.7-14.4)
[2020-05-23] MEDS: METHYLPREDNISOLONE SOD SUCC 40 MG/ML VIAL 1ML IV SCH ×2 (05:43→16:04)
[2020-05-23 05:51] LABS: ALANINE AMINOTRANSFERASE 7 IU/L (0-55); ALBUMIN 2.9 g/dL (3.5-5.0); ALBUMIN/GLOBULIN RATIO 0.9 (0.8-2.0); ALKALINE PHOSPHATASE 61 IU/L (40-150); BLOOD UREA NITROGEN 16 mg/dL (7-26); BUN/CREATININE RATIO 25 (6-25); CALCIUM 8.4 mg/dL (8.4-10.2); CHLORIDE 94 mmol/L (98-107); CREATININE, SERUM 0.65 mg/dL (0.57-1.11); EST GLOMERULAR FILTRATION RATE > 60 ML/MIN (60-); GLUCOSE 119 mg/dL (74-118); SODIUM 144 mmol/L (136-145)
[2020-05-23 05:55] LABS: CARBON DIOXIDE 45 mmol/L (22-29)
[2020-05-23 07:32] LABS: PLATELET ESTIMATE ADEQUATE; PLATELET MORPHOLOGY COMMENT NORMAL; RBC MORPHOLOGY COMMENT NORMAL
[2020-05-23 07:36] LABS: HYPOCHROMASIA SLIGHT
[2020-05-23] MEDS: NEBIVOLOL HCL 2.5 MG TABLET PO SCH (08:58)
[2020-05-23] MEDS ORDERED: PREDNISONE 10 MG TAB PO SCH (09:00)
[2020-05-23] MEDS ORDERED: NEBIVOLOL 10 MG TAB PO SCH (09:00)
[2020-05-23] MEDS: ASPIRIN 81 MG ENTERIC COATED PO SCH (09:00)
[2020-05-23] MEDS: DOXYCYCLINE HYCLATE 100 MG in SODIUM CHLORIDE 0.9% 100 ML 100 ML IV SCH ×2 (09:00→21:07)
[2020-05-23] MEDS ORDERED: PREDNISONE 20 MG TAB PO SCH (09:00)
[2020-05-23] MEDS ORDERED: FUROSEMIDE 40 MG TAB PO SCH (09:00)
[2020-05-23] MEDS ORDERED: POTASSIUM CHLORIDE 10MEQ EA PO SCH (09:00)
[2020-05-23] MEDS: ENOXAPARIN SOD INJ 40 MG/0.4 ML SYR SC SCH ×2 (09:05→21:07)
[2020-05-23] MEDS: FUROSEMIDE 40 MG TAB PO SCH (09:05)
[2020-05-23] MEDS: POTASSIUM CHLORIDE 20 MEQ TAB CR PO SCH (09:05)
[2020-05-23] MEDS: SALMETEROL/FLUTICASONE 250/50 INH SCH (15:56)
[2020-05-23] MEDS: MONTELUKAST SODIUM 10 MG TAB PO SCH (16:04)
[2020-05-24 00:05] VITALS: BP 114/78
[2020-05-24] MEDS: IPRATROPIUM BROMIDE 0.02% 2.5 ML NEB NEB SCH ×4 (03:40→14:20)
[2020-05-24] MEDS: ALBUTEROL SULF 0.083% NEB SOLN 3 ML NEB NEB SCH ×4 (03:40→14:20)
[2020-05-24 04:05] VITALS: BP 133/84
[2020-05-24] MEDS: METHYLPREDNISOLONE SOD SUCC 40 MG/ML VIAL 1ML IV SCH (05:46)
[2020-05-24 07:38] VITALS: BP 129/81
[2020-05-24 07:39] VITALS: BP 129/81
[2020-05-24] MEDS: ASPIRIN 81 MG ENTERIC COATED PO SCH (08:35)
[2020-05-24] MEDS: DOXYCYCLINE HYCLATE 100 MG in SODIUM CHLORIDE 0.9% 100 ML 100 ML IV SCH (08:35)
[2020-05-24] MEDS: NEBIVOLOL HCL 2.5 MG TABLET PO SCH (08:39)
[2020-05-24] MEDS: POTASSIUM CHLORIDE 20 MEQ TAB CR PO SCH (08:39)
[2020-05-24] MEDS: ENOXAPARIN SOD INJ 40 MG/0.4 ML SYR SC SCH (08:39)
[2020-05-24] MEDS: FUROSEMIDE 40 MG TAB PO SCH (08:39)
[2020-05-24 12:00] VITALS: BP 123/84
[2020-05-25] MEDS ORDERED: NEBIVOLOL HCL 2.5 MG TABLET PO SCH (09:00)
== END 2020-05-24 16:10 | disposition home health service (06) | DRG 190 ==
LOC: ER 17:32 → ERHOLD 20:03 → MED/SURG 05-22 01:34
PROVIDERS: ADMIT Internal Medicine; ATTEND Internal Medicine
DX: J43.9 Emphysema, unspecified (principal); I21.A1 Myocardial infarction type 2; J96.22 Acute and chronic respiratory failure with hypercapnia; F17.210 Nicotine dependence, cigarettes, uncomplicated; Z99.81 Dependence on supplemental oxygen; I48.0 Paroxysmal atrial fibrillation; I25.10 Atherosclerotic heart disease of native coronary artery without angina pectoris; Z20.822 Contact with and (suspected) exposure to COVID-19
CPT/HCPCS: 36415; 71045; 80048; 80053; 83880; 84484; 85025; 85730; 87400; 93005; 93306; 94640; 96361; 99251; 99284; J1650; J2920; J7050; U0002

== ENCOUNTER 2020-07-10 15:08 | Inpatient (IN) | payer MEDICARE, OTHER ==
[~2020-07-10] VITALS: Ht 160 cm; Wt 48.5 kg
[2020-07-10] MEDS ORDERED: ALBUTEROL/IPRATROPIUM 3 ML NEB NEB ONE (15:30)
[2020-07-10] MEDS ORDERED: DEXAMETHASONE SOD PHOS 10 MG/1 ML VIAL IV ONE (15:30)
[2020-07-10 16:03] LABS: BASOPHILS % 0.2 % (0.0-1.0); EOSINOPHILS % 0.5 % (0.0-6.0); HEMATOCRIT 44.5 % (34.2-44.1); HEMOGLOBIN 12.2 g/dL (12.0-16.0); LYMPHOCYTES # (AUTO) 0.8 (1.0-3.2); LYMPHOCYTES % 9.1 % (18.0-39.1); MEAN CORPUSCULAR HEMOGLOBIN 26.4 pg (28-32); MEAN CORPUSCULAR HGB CONC 27.4 g/dL (31-35); MEAN CORPUSCULAR VOLUME 96.3 fL (81-99); MONOCYTES # (AUTO) 0.7 (0.2-0.8); NEUTROPHILS # (AUTO) 7.1 (2.1-6.9); PLATELET COUNT 231 x10e3/uL (140-360); RED BLOOD COUNT 4.62 x10e6/uL (3.6-5.1)
[2020-07-10 16:19] LABS: ALANINE AMINOTRANSFERASE 17 IU/L (0-55); ALBUMIN 3.5 g/dL (3.5-5.0); ALBUMIN/GLOBULIN RATIO 0.9 (0.8-2.0); ALKALINE PHOSPHATASE 75 IU/L (40-150); ANION GAP 12.6 mmol/L (8-16); BLOOD UREA NITROGEN 19 mg/dL (7-26); BUN/CREATININE RATIO 32 (6-25); CALCIUM 9.3 mg/dL (8.4-10.2); CHLORIDE 93 mmol/L (98-107); CREATININE, SERUM 0.59 mg/dL (0.57-1.11); EST GLOMERULAR FILTRATION RATE > 60 ML/MIN (60-); GLUCOSE 99 mg/dL (74-118); POTASSIUM 4.6 mmol/L (3.5-5.1); SODIUM 148 mmol/L (136-145)
[2020-07-10 16:23] LABS: CARBON DIOXIDE 47 mmol/L (22-29)
[2020-07-10] MEDS ORDERED: ALBUTEROL/IPRATROPIUM 3 ML NEB NEB STA ×2 (16:30→17:22)
[2020-07-10 16:58] LABS: ABG PCO2 118 mmHg (35-45); ABG PH 7.27 (7.35-7.45); ABG PO2 236 mmHg (80-105)
[2020-07-10 16:59] LABS: ABG HCO3 55 mmol/L (22-26); ABG TCO2 50
[2020-07-10] MEDS ORDERED: PIPER-TAZ 3.375 GM 50 ML IV SCH (17:00)
[2020-07-10] MEDS: CEFEPIME HCL 1GM 1 GM in SODIUM CHLORIDE 0.9% 50ML 50 ML IV SCH (17:17)
[2020-07-10] MEDS ORDERED: SODIUM CHLORIDE FLUSH 10 ML SYR INJ PRN (17:30)
[2020-07-10] MEDS: AZITHROMYCIN 500MG/NS 250 ML 250 ML IV SCH (20:56)
[2020-07-10 22:11] LABS: CREATINE KINASE MB 4.6 ng/mL (0-5.0)
[2020-07-11] VITALS (25 sets, daily range): BP systolic 97–150; BP diastolic 59–101
[2020-07-11 00:18] LABS: CREATINE KINASE MB 4.6 ng/mL (0-5.0)
[2020-07-11 04:39] LABS: BASOPHILS % 0.2 % (0.0-1.0); HEMATOCRIT 38.8 % (34.2-44.1); HEMOGLOBIN 10.9 g/dL (12.0-16.0); LYMPHOCYTES # (AUTO) 0.4 (1.0-3.2); LYMPHOCYTES % 7.6 % (18.0-39.1); MEAN CORPUSCULAR HEMOGLOBIN 26.4 pg (28-32); MEAN CORPUSCULAR HGB CONC 28.1 g/dL (31-35); MEAN CORPUSCULAR VOLUME 93.9 fL (81-99); MONOCYTES # (AUTO) 0.3 (0.2-0.8); MONOCYTES % 4.7 % (4.4-11.3); NEUTROPHILS # (AUTO) 4.7 (2.1-6.9); NEUTROPHILS % 87.3 % (38.7-80.0); PLATELET COUNT 232 x10e3/uL (140-360); RED BLOOD COUNT 4.13 x10e6/uL (3.6-5.1); RED CELL DISTRIBUTION WIDTH 13.9 % (11.7-14.4)
[2020-07-11] MEDS: CEFEPIME HCL 1GM 1 GM in SODIUM CHLORIDE 0.9% 50ML 50 ML IV SCH ×2 (05:00→17:32)
[2020-07-11 05:01] LABS: ALANINE AMINOTRANSFERASE 13 IU/L (0-55); ALBUMIN/GLOBULIN RATIO 0.9 (0.8-2.0); ALKALINE PHOSPHATASE 65 IU/L (40-150); ANION GAP 13.1 mmol/L (8-16); BLOOD UREA NITROGEN 21 mg/dL (7-26); BUN/CREATININE RATIO 36 (6-25); CALCIUM 9.2 mg/dL (8.4-10.2); CHLORIDE 94 mmol/L (98-107); CREATININE, SERUM 0.59 mg/dL (0.57-1.11); EST GLOMERULAR FILTRATION RATE > 60 ML/MIN (60-); GLUCOSE 102 mg/dL (74-118); POTASSIUM 5.1 mmol/L (3.5-5.1); SODIUM 146 mmol/L (136-145)
[2020-07-11 05:13] LABS: CARBON DIOXIDE 44 mmol/L (22-29)
[2020-07-11] MEDS ORDERED: SODIUM CHLORIDE 0.9% 50ML 50 ML ONE (05:20)
[2020-07-11] MEDS ORDERED: CEFEPIME HCL 1 GM VIAL ONE ×2 (05:20→16:50)
[2020-07-11] MEDS: METHYLPREDNISOLONE SOD SUCC 40 MG/ML VIAL 1ML IV SCH ×3 (05:45→21:30)
[2020-07-11] MEDS: APIXAB 2.5 MG TABLET PO SCH ×2 (08:10→17:32)
[2020-07-11] MEDS ORDERED: ACETAMINOPHEN 325 MG TAB PO PRN (08:30)
[2020-07-11] MEDS ORDERED: BUSPIRONE HCL 5 MG TAB PO PRN (08:45)
[2020-07-11] MEDS ORDERED: NEBIVOLOL 10 MG TAB PO SCH (09:00)
[2020-07-11] MEDS: POTASSIUM CHLORIDE 20 MEQ TAB CR PO SCH (09:35)
[2020-07-11] MEDS: SERTRALINE HCL 50 MG TAB PO SCH (09:36)
[2020-07-11] MEDS: FUROSEMIDE 40 MG TAB PO SCH (09:36)
[2020-07-11] MEDS ORDERED: NEBIVOLOL HCL 2.5 MG TABLET PO SCH (10:00)
[2020-07-11 10:41] LABS: CREATINE KINASE MB 3.7 ng/mL (0-5.0)
[2020-07-11] MEDS: AZITHROMYCIN 500MG/NS 250 ML 250 ML IV SCH (17:32)
[2020-07-11] MEDS: MONTELUKAST SODIUM 10 MG TAB PO SCH (17:32)
[2020-07-11] MEDS: LORAZEPAM INJ 2 MG/ML VIAL IV PRN (17:32)
[2020-07-12] VITALS (24 sets, daily range): BP systolic 84–151; BP diastolic 57–98
[2020-07-12 00:01] LABS: ALANINE AMINOTRANSFERASE 15 IU/L (0-55); ALBUMIN 3.1 g/dL (3.5-5.0); ALKALINE PHOSPHATASE 64 IU/L (40-150); ANION GAP 9.9 mmol/L (8-16); BLOOD UREA NITROGEN 31 mg/dL (7-26); BUN/CREATININE RATIO 55 (6-25); CALCIUM 9.2 mg/dL (8.4-10.2); CHLORIDE 96 mmol/L (98-107); CREATININE, SERUM 0.56 mg/dL (0.57-1.11); EST GLOMERULAR FILTRATION RATE > 60 ML/MIN (60-); GLUCOSE 100 mg/dL (74-118); POTASSIUM 4.9 mmol/L (3.5-5.1); SODIUM 146 mmol/L (136-145)
[2020-07-12 00:02] LABS: CARBON DIOXIDE 45 mmol/L (22-29)
[2020-07-12 00:12] LABS: PHOSPHORUS 4.4 MG/DL (2.3-4.7)
[2020-07-12] MEDS ORDERED: CEFEPIME HCL 1 GM VIAL ONE ×2 (04:59→17:13)
[2020-07-12] MEDS: CEFEPIME HCL 1GM 1 GM in SODIUM CHLORIDE 0.9% 50ML 50 ML IV SCH ×2 (05:00→17:13)
[2020-07-12 05:13] LABS: BASOPHILS % 0.1 % (0.0-1.0); HEMATOCRIT 37.7 % (34.2-44.1); HEMOGLOBIN 10.6 g/dL (12.0-16.0); LYMPHOCYTES # (AUTO) 0.4 (1.0-3.2); LYMPHOCYTES % 4.7 % (18.0-39.1); MEAN CORPUSCULAR HEMOGLOBIN 25.9 pg (28-32); MEAN CORPUSCULAR HGB CONC 28.1 g/dL (31-35); MEAN CORPUSCULAR VOLUME 92.2 fL (81-99); MONOCYTES # (AUTO) 0.3 (0.2-0.8); MONOCYTES % 3.2 % (4.4-11.3); NEUTROPHILS # (AUTO) 7.9 (2.1-6.9); NEUTROPHILS % 91.4 % (38.7-80.0); PLATELET COUNT 250 x10e3/uL (140-360); RED BLOOD COUNT 4.09 x10e6/uL (3.6-5.1); RED CELL DISTRIBUTION WIDTH 14.1 % (11.7-14.4)
[2020-07-12 05:32] LABS: ALANINE AMINOTRANSFERASE 14 IU/L (0-55); ALKALINE PHOSPHATASE 61 IU/L (40-150); ANION GAP 10.7 mmol/L (8-16); BLOOD UREA NITROGEN 32 mg/dL (7-26); BUN/CREATININE RATIO 60 (6-25); CALCIUM 9.1 mg/dL (8.4-10.2); CHLORIDE 95 mmol/L (98-107); CREATININE, SERUM 0.53 mg/dL (0.57-1.11); EST GLOMERULAR FILTRATION RATE > 60 ML/MIN (60-); GLUCOSE 97 mg/dL (74-118); POTASSIUM 4.7 mmol/L (3.5-5.1); SODIUM 147 mmol/L (136-145)
[2020-07-12 05:44] LABS: CARBON DIOXIDE 46 mmol/L (22-29)
[2020-07-12] MEDS: TIOTROPIUM 18 MCG INH POWDER INH SCH (06:00)
[2020-07-12] MEDS: NEBIVOLOL HCL 2.5 MG TABLET PO SCH (08:44)
[2020-07-12] MEDS: APIXAB 2.5 MG TABLET PO SCH ×2 (08:44→17:00)
[2020-07-12] MEDS: METHYLPREDNISOLONE SOD SUCC 40 MG/ML VIAL 1ML IV SCH ×2 (08:44→19:30)
[2020-07-12] MEDS: LORAZEPAM INJ 2 MG/ML VIAL IV PRN ×2 (08:45→14:51)
[2020-07-12] MEDS: SERTRALINE HCL 50 MG TAB PO SCH (08:45)
[2020-07-12] MEDS: FUROSEMIDE 40 MG TAB PO SCH (08:45)
[2020-07-12] MEDS: POTASSIUM CHLORIDE 20 MEQ TAB CR PO SCH (08:45)
[2020-07-12] MEDS ORDERED: NEBIVOLOL HCL 2.5 MG TABLET PO SCH (09:00)
[2020-07-12 09:41] LABS: LYMPHOCYTES % (MANUAL) 5 % (19-48); MONOCYTES % (MANUAL) 3 % (3.4-9.0); NEUTROPHILS % (MANUAL) 90 % (40-74); PLATELET ESTIMATE ADEQUATE; PLATELET MORPHOLOGY COMMENT NORMAL; RBC MORPHOLOGY COMMENT NORMAL
[2020-07-12 15:54] LABS: ABG HCO3 57 mmol/L (22-26); ABG PCO2 101 mmHg (35-45); ABG PH 7.36 (7.35-7.45); ABG PO2 66 mmHg (80-105); ABG TCO2 50
[2020-07-12] MEDS: MONTELUKAST SODIUM 10 MG TAB PO SCH (17:00)
[2020-07-12] MEDS: AZITHROMYCIN 500MG/NS 250 ML 250 ML IV SCH (17:13)
[2020-07-13] VITALS (26 sets, daily range): BP systolic 93–146; BP diastolic 56–101
[2020-07-13] MEDS: LORAZEPAM INJ 2 MG/ML VIAL IV PRN ×2 (01:30→14:11)
[2020-07-13] MEDS: CEFEPIME HCL 1GM 1 GM in SODIUM CHLORIDE 0.9% 50ML 50 ML IV SCH ×2 (05:15→17:58)
[2020-07-13 05:59] LABS: HEMATOCRIT 34.3 % (34.2-44.1); HEMOGLOBIN 10.1 g/dL (12.0-16.0); LYMPHOCYTES # (AUTO) 0.4 (1.0-3.2); LYMPHOCYTES % 7.5 % (18.0-39.1); MEAN CORPUSCULAR HEMOGLOBIN 27.2 pg (28-32); MEAN CORPUSCULAR HGB CONC 29.4 g/dL (31-35); MEAN CORPUSCULAR VOLUME 92.2 fL (81-99); MONOCYTES # (AUTO) 0.4 (0.2-0.8); MONOCYTES % 7.1 % (4.4-11.3); NEUTROPHILS # (AUTO) 4.9 (2.1-6.9); NEUTROPHILS % 85.1 % (38.7-80.0); PLATELET COUNT 222 x10e3/uL (140-360); RED BLOOD COUNT 3.72 x10e6/uL (3.6-5.1)
[2020-07-13 06:21] LABS: ALANINE AMINOTRANSFERASE 12 IU/L (0-55); ALBUMIN 2.6 g/dL (3.5-5.0); ALBUMIN/GLOBULIN RATIO 0.9 (0.8-2.0); ALKALINE PHOSPHATASE 54 IU/L (40-150); ANION GAP 12.3 mmol/L (8-16); BLOOD UREA NITROGEN 36 mg/dL (7-26); BUN/CREATININE RATIO 65 (6-25); CALCIUM 8.8 mg/dL (8.4-10.2); CHLORIDE 92 mmol/L (98-107); CREATININE, SERUM 0.55 mg/dL (0.57-1.11); EST GLOMERULAR FILTRATION RATE > 60 ML/MIN (60-); GLUCOSE 81 mg/dL (74-118); POTASSIUM 4.3 mmol/L (3.5-5.1); SODIUM 150 mmol/L (136-145)
[2020-07-13 06:26] LABS: CARBON DIOXIDE 50 mmol/L (22-29)
[2020-07-13] MEDS: TIOTROPIUM 18 MCG INH POWDER INH SCH (08:31)
[2020-07-13] MEDS: SERTRALINE HCL 50 MG TAB PO SCH (09:29)
[2020-07-13] MEDS: POTASSIUM CHLORIDE 20 MEQ TAB CR PO SCH (09:30)
[2020-07-13] MEDS: METHYLPREDNISOLONE SOD SUCC 40 MG/ML VIAL 1ML IV SCH ×2 (09:31→20:45)
[2020-07-13] MEDS: APIXAB 2.5 MG TABLET PO SCH ×2 (09:31→18:06)
[2020-07-13] MEDS: FUROSEMIDE 40 MG TAB PO SCH (09:34)
[2020-07-13] MEDS: NEBIVOLOL HCL 2.5 MG TABLET PO SCH (10:04)
[2020-07-13] MEDS ORDERED: DEXTROSE 5%/0.45% SOD CHL 1,000 ML IV ONE (12:30)
[2020-07-13] MEDS: ALBUTEROL/IPRATROPIUM 3 ML NEB NEB PRN (15:37)
[2020-07-13] MEDS: MONTELUKAST SODIUM 10 MG TAB PO SCH (18:06)
[2020-07-13] MEDS: NICOTINE 14 MG/EA PATCH TOP SCH (18:07)
[2020-07-13] MEDS: AZITHROMYCIN 500MG/NS 250 ML 250 ML IV SCH (18:44)
[2020-07-14] VITALS (27 sets, daily range): BP systolic 104–147; BP diastolic 56–98
[2020-07-14] MEDS: CEFEPIME HCL 1GM 1 GM in SODIUM CHLORIDE 0.9% 50ML 50 ML IV SCH ×2 (04:59→17:27)
[2020-07-14 06:18] LABS: BLOOD UREA NITROGEN 31 mg/dL (7-26); BUN/CREATININE RATIO 55 (6-25); CALCIUM 8.9 mg/dL (8.4-10.2); CHLORIDE 91 mmol/L (98-107); CREATININE, SERUM 0.56 mg/dL (0.57-1.11); EST GLOMERULAR FILTRATION RATE > 60 ML/MIN (60-); GLUCOSE 144 mg/dL (74-118); POTASSIUM 4.1 mmol/L (3.5-5.1); SODIUM 148 mmol/L (136-145)
[2020-07-14 06:58] LABS: ANION GAP 14.1 mmol/L (8-16)
[2020-07-14 07:08] LABS: CARBON DIOXIDE 47 mmol/L (22-29)
[2020-07-14] MEDS: ALBUTEROL/IPRATROPIUM 3 ML NEB NEB PRN (08:07)
[2020-07-14] MEDS: TIOTROPIUM 18 MCG INH POWDER INH SCH (08:07)
[2020-07-14] MEDS: NEBIVOLOL HCL 2.5 MG TABLET PO SCH (08:08)
[2020-07-14] MEDS: METHYLPREDNISOLONE SOD SUCC 40 MG/ML VIAL 1ML IV SCH ×2 (08:08→21:06)
[2020-07-14] MEDS: NICOTINE 14 MG/EA PATCH TOP SCH (08:09)
[2020-07-14] MEDS: APIXAB 2.5 MG TABLET PO SCH ×2 (08:09→18:23)
[2020-07-14] MEDS: SERTRALINE HCL 50 MG TAB PO SCH ×2 (08:09→08:28)
[2020-07-14] MEDS ORDERED: NICOTINE 14 MG/EA PATCH TOP SCH (17:00)
[2020-07-14] MEDS: MONTELUKAST SODIUM 10 MG TAB PO SCH (18:23)
[2020-07-14] MEDS: AZITHROMYCIN 500MG/NS 250 ML 250 ML IV SCH (18:23)
[2020-07-14] MEDS: LORAZEPAM INJ 2 MG/ML VIAL IV PRN (21:06)
[2020-07-15] VITALS (19 sets, daily range): BP systolic 103–135; BP diastolic 70–99
[2020-07-15] MEDS: TIOTROPIUM 18 MCG INH POWDER INH SCH (06:00)
[2020-07-15] MEDS: CEFEPIME HCL 1GM 1 GM in SODIUM CHLORIDE 0.9% 50ML 50 ML IV SCH ×2 (06:10→17:42)
[2020-07-15] MEDS: ALBUTEROL/IPRATROPIUM 3 ML NEB NEB PRN ×2 (09:08→20:35)
[2020-07-15] MEDS: NICOTINE 14 MG/EA PATCH TOP SCH (10:02)
[2020-07-15] MEDS: SERTRALINE HCL 50 MG TAB PO SCH (10:02)
[2020-07-15] MEDS: METHYLPREDNISOLONE SOD SUCC 40 MG/ML VIAL 1ML IV SCH ×2 (10:02→20:49)
[2020-07-15] MEDS: APIXAB 2.5 MG TABLET PO SCH ×2 (10:02→17:42)
[2020-07-15] MEDS: NEBIVOLOL HCL 2.5 MG TABLET PO SCH (10:02)
[2020-07-15] MEDS: MONTELUKAST SODIUM 10 MG TAB PO SCH (17:42)
[2020-07-15] MEDS: AZITHROMYCIN 500MG/NS 250 ML 250 ML IV SCH (18:25)
[2020-07-15] MEDS ORDERED: SODIUM CHLORIDE 0.9% 250ML 250 ML ONE (18:42)
[2020-07-15] MEDS: TEMAZEPAM 15 MG CAP PO PRN (21:01)
[2020-07-16] VITALS (8 sets, daily range): BP systolic 99–129; BP diastolic 76–87
[2020-07-16] MEDS ORDERED: CEFEPIME HCL 1 GM VIAL ONE ×2 (04:05→17:30)
[2020-07-16] MEDS ORDERED: SODIUM CHLORIDE 0.9% 50ML 50 ML ONE ×2 (04:06→17:32)
[2020-07-16] MEDS: TIOTROPIUM 18 MCG INH POWDER INH SCH (04:51)
[2020-07-16] MEDS: CEFEPIME HCL 1GM 1 GM in SODIUM CHLORIDE 0.9% 50ML 50 ML IV SCH ×2 (04:51→17:42)
[2020-07-16] MEDS: NEBIVOLOL HCL 2.5 MG TABLET PO SCH (09:00)
[2020-07-16] MEDS ORDERED: NITROGLYCERIN 0.4 MG SUBL SL PRN (09:15)
[2020-07-16] MEDS: APIXAB 2.5 MG TABLET PO SCH ×2 (09:27→17:42)
[2020-07-16] MEDS: NICOTINE 14 MG/EA PATCH TOP SCH (09:27)
[2020-07-16] MEDS: SERTRALINE HCL 50 MG TAB PO SCH (09:27)
[2020-07-16] MEDS: METHYLPREDNISOLONE SOD SUCC 40 MG/ML VIAL 1ML IV SCH ×2 (09:28→21:00)
[2020-07-16] MEDS: AZITHROMYCIN 500MG/NS 250 ML 250 ML IV SCH (17:42)
[2020-07-16] MEDS: MONTELUKAST SODIUM 10 MG TAB PO SCH (17:42)
[2020-07-16] MEDS: TEMAZEPAM 15 MG CAP PO PRN (21:31)
[2020-07-17] VITALS (8 sets, daily range): BP systolic 96–144; BP diastolic 71–92
[2020-07-17] MEDS: CEFEPIME HCL 1GM 1 GM in SODIUM CHLORIDE 0.9% 50ML 50 ML IV SCH ×2 (05:00→17:39)
[2020-07-17] MEDS ORDERED: SODIUM CHLORIDE 0.9% 50ML 50 ML ONE ×2 (05:30→17:11)
[2020-07-17] MEDS ORDERED: CEFEPIME HCL 1 GM VIAL ONE ×2 (05:30→17:11)
[2020-07-17] MEDS: TIOTROPIUM 18 MCG INH POWDER INH SCH (06:00)
[2020-07-17] MEDS: ALBUTEROL/IPRATROPIUM 3 ML NEB NEB PRN ×2 (07:16→13:14)
[2020-07-17] MEDS: NICOTINE 14 MG/EA PATCH TOP SCH (09:00)
[2020-07-17] MEDS ORDERED: ASPIRIN 325 MG TAB PO SCH (09:00)
[2020-07-17] MEDS: SERTRALINE HCL 50 MG TAB PO SCH (09:00)
[2020-07-17] MEDS: APIXAB 2.5 MG TABLET PO SCH ×2 (10:30→17:39)
[2020-07-17] MEDS: METHYLPREDNISOLONE SOD SUCC 40 MG/ML VIAL 1ML IV SCH (10:31)
[2020-07-17] MEDS: NEBIVOLOL HCL 2.5 MG TABLET PO SCH (11:35)
[2020-07-17] MEDS: MONTELUKAST SODIUM 10 MG TAB PO SCH (17:39)
[2020-07-17] MEDS: AZITHROMYCIN 500MG/NS 250 ML 250 ML IV SCH (18:13)
== END 2020-07-17 21:36 | DRG 189 ==
LOC: ER 15:24 → ERHOLD 17:19 → ICU 07-11 00:38 → MED/SURG2 07-15 17:48
PROVIDERS: ADMIT Internal Medicine; ATTEND Internal Medicine
PROC: 02HV33Z Insertion of Infusion Device into Superior Vena Cava, Percutaneous Approach (ICD-10-PCS; principal; 2020-07-11)
PROC: B548ZZA Ultrasonography of Superior Vena Cava, Guidance (ICD-10-PCS; 2020-07-11)
DX: J96.21 Acute and chronic respiratory failure with hypoxia (principal); I21.4 Non-ST elevation (NSTEMI) myocardial infarction; I50.23 Acute on chronic systolic (congestive) heart failure; J44.1 Chronic obstructive pulmonary disease with (acute) exacerbation; E87.0 Hyperosmolality and hypernatremia; E44.1 Mild protein-calorie malnutrition; Z68.1 Body mass index [BMI] 19.9 or less, adult; J96.22 Acute and chronic respiratory failure with hypercapnia; I27.20 Pulmonary hypertension, unspecified; I48.0 Paroxysmal atrial fibrillation; Z90.49 Acquired absence of other specified parts of digestive tract; F17.210 Nicotine dependence, cigarettes, uncomplicated; Z88.5 Allergy status to narcotic agent; Z88.0 Allergy status to penicillin; F41.9 Anxiety disorder, unspecified; Z82.49 Family history of ischemic heart disease and other diseases of the circulatory system; D63.8 Anemia in other chronic diseases classified elsewhere; I11.0 Hypertensive heart disease with heart failure; Z20.822 Contact with and (suspected) exposure to COVID-19; Z99.81 Dependence on supplemental oxygen; I08.1 Rheumatic disorders of both mitral and tricuspid valves
CPT/HCPCS: 36415; 36569; 36600; 71045; 80048; 80053; 82550; 82553; 82805; 82948; 83605; 83735; 83880; 84100; 84484; 85025; 87040; 87071; 87205; 93005; 93306; 94640; 94660; 94664; 97139; 99285; J0456; J0692; J1100; J2060; J2920; J7050; U0002

== ENCOUNTER 2020-08-15 08:36 | Inpatient (IN) | payer MEDICARE, OTHER ==
[~2020-08-15] VITALS: Ht 160 cm; Wt 49.5 kg
[2020-08-15] VITALS (8 sets, daily range): BP systolic 94–137; BP diastolic 67–87
[~2020-08-15 08:36] MED LIST changes: -ELIQUIS5 M1; +ELIQUIS5 M1 PO; -THYROID; +THYROID PO
[2020-08-15] MEDS ORDERED: SODIUM CHLORIDE 0.9% 1000ML 1,000 ML IV STA (08:53)
[2020-08-15] MEDS ORDERED: AZITHROMYCIN 500MG/NS 250 ML 250 ML IV ONE (09:00)
[2020-08-15] MEDS ORDERED: CEFTRIAXONE SOD 1 GM/50 ML BAG IV ONE (09:00)
[2020-08-15] MEDS ORDERED: MIDAZOLAM HCL 2 MG/2 ML VIAL IV STA (09:10)
[2020-08-15] MEDS ORDERED: CEFTRIAXONE SOD 1 GM in SODIUM CHLORIDE 0.9% 50ML 50 ML IV ONE (09:15)
[2020-08-15] MEDS ORDERED: SODIUM CHLORIDE 0.9% 1000ML 1,000 ML IV SCH (09:15)
[2020-08-15] MEDS ORDERED: PROPOFOL IV EMULSION 50 ML IV ONE ×2 (09:16→11:02)
[2020-08-15] MEDS: PROPOFOL IV EMULSION 10MG/ML 100 ML IV SCH ×4 (09:19→20:37)
[2020-08-15] MEDS ORDERED: MIDAZOLAM HCL 50 MG in SODIUM CHLORIDE 0.9% 100 ML 90 ML IV PRN (09:45)
[2020-08-15 10:00] LABS: BASOPHILS % 0.2 % (0.0-1.0); EOSINOPHILS % 0.1 % (0.0-6.0); HEMATOCRIT 39.9 % (34.2-44.1); HEMOGLOBIN 11.5 g/dL (12.0-16.0); LYMPHOCYTES # (AUTO) 0.7 (1.0-3.2); LYMPHOCYTES % 5.6 % (18.0-39.1); MEAN CORPUSCULAR HEMOGLOBIN 27.1 pg (28-32); MEAN CORPUSCULAR HGB CONC 28.8 g/dL (31-35); MEAN CORPUSCULAR VOLUME 93.9 fL (81-99); MONOCYTES # (AUTO) 0.7 (0.2-0.8); MONOCYTES % 5.2 % (4.4-11.3); NEUTROPHILS # (AUTO) 11.2 (2.1-6.9); NEUTROPHILS % 88.5 % (38.7-80.0); PLATELET COUNT 531 x10e3/uL (140-360); RED BLOOD COUNT 4.25 x10e6/uL (3.6-5.1); RED CELL DISTRIBUTION WIDTH 15.9 % (11.7-14.4)
[2020-08-15 10:12] LABS: CLARITY,URINE CLEAR (CLEAR); COLOR,URINE YELLOW (YELLOW); INR 0.95; KETONES,URINE NEGATIVE (NEGATIVE); LEUKOCYTE ESTERASE ,URINE NEGATIVE (NEGATIVE); NITRITE,URINE NEGATIVE (NEGATIVE); PROTEIN,URINE DIPSTICK 2+ (NEGATIVE); PROTHROMBIN TIME 13.2 seconds (11.9-14.5); URINE UROBILINOGEN 0.2 mg/dL (0.2 - 1)
[2020-08-15] MEDS: ALBUTEROL SULF 0.083% NEB SOLN 3 ML NEB NEB SCH ×4 (10:20→19:35)
[2020-08-15] MEDS: IPRATROPIUM BROMIDE 0.02% 2.5 ML NEB NEB SCH ×2 (10:20→19:35)
[2020-08-15 10:21] LABS: PARTIAL THROMBOPLASTIN TIME 28.7 seconds (23.8-35.5)
[2020-08-15 10:21] LABS: ABG HCO3 43 mmol/L (22-26); ABG PCO2 80 mmHg (35-45); ABG PH 7.34 (7.35-7.45); ABG PO2 496 mmHg (80-105); ABG TCO2 46
[2020-08-15 10:22] LABS: ALANINE AMINOTRANSFERASE 33 IU/L (0-55); ALBUMIN 3.8 g/dL (3.5-5.0); ALBUMIN/GLOBULIN RATIO 0.9 (0.8-2.0); ALKALINE PHOSPHATASE 94 IU/L (40-150); ANION GAP 17.1 mmol/L (8-16); BLOOD UREA NITROGEN 18 mg/dL (7-26); BUN/CREATININE RATIO 24 (6-25); CALCIUM 9.1 mg/dL (8.4-10.2); CARBON DIOXIDE 37 mmol/L (22-29); CHLORIDE 96 mmol/L (98-107); CREATINE KINASE 84 IU/L (29-168); CREATININE, SERUM 0.74 mg/dL (0.57-1.11); EST GLOMERULAR FILTRATION RATE > 60 ML/MIN (60-); GLUCOSE 157 mg/dL (74-118); MAGNESIUM 1.9 MG/DL (1.3-2.1); POTASSIUM 5.1 mmol/L (3.5-5.1); SODIUM 145 mmol/L (136-145)
[2020-08-15] MEDS ORDERED: FUROSEMIDE INJ 10 MG/ML 4 ML VIAL IV STA (10:35)
[2020-08-15 10:37] LABS: BACTERIA,URINE RARE /HPF; EPITHELIAL CELLS,URINE FEW /LPF
[2020-08-15] MEDS: METHYLPREDNISOLONE SOD SUCC 125 MG/2ML VIAL IV SCH ×2 (10:53→20:35)
[2020-08-15 11:06] LABS: ALANINE AMINOTRANSFERASE 25 IU/L (0-55); ALBUMIN 2.9 g/dL (3.5-5.0); ALKALINE PHOSPHATASE 67 IU/L (40-150); ANION GAP 14.5 mmol/L (8-16); BLOOD UREA NITROGEN 18 mg/dL (7-26); BUN/CREATININE RATIO 29 (6-25); CALCIUM 7.9 mg/dL (8.4-10.2); CARBON DIOXIDE 34 mmol/L (22-29); CHLORIDE 103 mmol/L (98-107); CREATININE, SERUM 0.62 mg/dL (0.57-1.11); EST GLOMERULAR FILTRATION RATE > 60 ML/MIN (60-); GLUCOSE 113 mg/dL (74-118); POTASSIUM 4.5 mmol/L (3.5-5.1); SODIUM 147 mmol/L (136-145)
[2020-08-15] MEDS ORDERED: ACETAMINOPHEN 325 MG TAB PO PRN (13:30)
[2020-08-15] MEDS ORDERED: MIDAZOLAM HCL 2 MG/2 ML VIAL ONE (13:44)
[2020-08-15] MEDS ORDERED: SUCCINYLCHOLINE CHLORIDE 20 MG/ML 10ML VIAL ONE (13:44)
[2020-08-15 14:18] LABS: CREATINE KINASE MB 4.1 ng/mL (0-5.0)
[2020-08-15] MEDS ORDERED: TEMAZEPAM15 MG PO (15:28)
[2020-08-15] MEDS ORDERED: DOCUSATE SODIU100 MG PO (15:28)
[2020-08-15] MEDS ORDERED: BUPROPION XL150 MG PO (15:28)
[2020-08-15] MEDS ORDERED: IPRATROPIU0.2 MG/1 M INH ×2 (15:28)
[2020-08-15] MEDS ORDERED: ASPIRIN325 MG PO (15:28)
[2020-08-15] MEDS ORDERED: BUSPIRONE HCL5 MG PO (15:28)
[2020-08-15] MEDS ORDERED: CLARITIN10 MG PO (15:28)
[2020-08-15] MEDS ORDERED: NITROGLYCERIN0.4 MG SL (15:28)
[2020-08-15] MEDS ORDERED: TYLENOL325 MG PO (15:28)
[2020-08-15] MEDS ORDERED: SERTRALINE HCL50 MG PO (15:28)
[2020-08-15] MEDS ORDERED: BYSTOLIC2.5 MG PO (15:28)
[2020-08-15] MEDS ORDERED: ALBUTEROL2.5 MG/3 M NEB (15:28)
[2020-08-15] MEDS ORDERED: NICODERM CQ1 EAC1 TD (15:44)
[2020-08-15] MEDS: MONTELUKAST SODIUM 10 MG TAB PO SCH (17:37)
[2020-08-15] MEDS: FUROSEMIDE INJ 10 MG/ML 4 ML VIAL IV SCH (20:35)
[2020-08-15] MEDS: ENOXAPARIN SOD INJ 40 MG/0.4 ML SYR SC SCH (20:35)
[2020-08-15] MEDS ORDERED: METHYLPREDNISOLONE SOD SUCC 40 MG/ML VIAL 1ML IV SCH (21:00)
[2020-08-15] MEDS: LORAZEPAM INJ 2 MG/ML VIAL IV PRN (21:02)
[2020-08-16] VITALS (22 sets, daily range): BP systolic 82–139; BP diastolic 62–91
[2020-08-16] MEDS: PROPOFOL IV EMULSION 10MG/ML 100 ML IV SCH ×2 (02:30→08:07)
[2020-08-16] MEDS: IPRATROPIUM BROMIDE 0.02% 2.5 ML NEB NEB SCH ×4 (03:40→20:11)
[2020-08-16] MEDS: ALBUTEROL SULF 0.083% NEB SOLN 3 ML NEB NEB SCH ×6 (03:50→23:10)
[2020-08-16 05:02] LABS: BASOPHILS % 0.1 % (0.0-1.0); HEMATOCRIT 27.8 % (34.2-44.1); HEMOGLOBIN 8.5 g/dL (12.0-16.0); LYMPHOCYTES # (AUTO) 0.7 (1.0-3.2); LYMPHOCYTES % 8.1 % (18.0-39.1); MEAN CORPUSCULAR HGB CONC 30.6 g/dL (31-35); MEAN CORPUSCULAR VOLUME 88.3 fL (81-99); MONOCYTES # (AUTO) 0.4 (0.2-0.8); MONOCYTES % 4.5 % (4.4-11.3); NEUTROPHILS # (AUTO) 7.8 (2.1-6.9); NEUTROPHILS % 86.9 % (38.7-80.0); PLATELET COUNT 405 x10e3/uL (140-360); RED BLOOD COUNT 3.15 x10e6/uL (3.6-5.1)
[2020-08-16 05:34] LABS: ALANINE AMINOTRANSFERASE 23 IU/L (0-55); ALBUMIN 2.9 g/dL (3.5-5.0); ALKALINE PHOSPHATASE 64 IU/L (40-150); ANION GAP 15.4 mmol/L (8-16); BLOOD UREA NITROGEN 22 mg/dL (7-26); BUN/CREATININE RATIO 31 (6-25); CALCIUM 8.2 mg/dL (8.4-10.2); CARBON DIOXIDE 36 mmol/L (22-29); CHLORIDE 97 mmol/L (98-107); CREATININE, SERUM 0.71 mg/dL (0.57-1.11); EST GLOMERULAR FILTRATION RATE > 60 ML/MIN (60-); GLUCOSE 105 mg/dL (74-118); POTASSIUM 3.4 mmol/L (3.5-5.1); SODIUM 145 mmol/L (136-145)
[2020-08-16 06:09] LABS: CREATINE KINASE MB 0.8 ng/mL (0-5.0)
[2020-08-16] MEDS ORDERED: FUROSEMIDE INJ 10 MG/ML 2 ML VIAL IV SCH (09:00)
[2020-08-16] MEDS ORDERED: CEFTRIAXONE SOD 1 GM VIAL ONE (09:59)
[2020-08-16] MEDS ORDERED: CEFTRIAXONE SOD 1 GM/50 ML BAG IV SCH (10:00)
[2020-08-16] MEDS: METHYLPREDNISOLONE SOD SUCC 125 MG/2ML VIAL IV SCH (10:08)
[2020-08-16] MEDS: FUROSEMIDE INJ 10 MG/ML 4 ML VIAL IV SCH (10:08)
[2020-08-16] MEDS: CEFTRIAXONE SOD 1 GM in SODIUM CHLORIDE 0.9% 50ML 50 ML IV SCH (10:08)
[2020-08-16] MEDS: ENOXAPARIN SOD INJ 40 MG/0.4 ML SYR SC SCH (10:08)
[2020-08-16] MEDS: NEBIVOLOL HCL 2.5 MG TABLET PO SCH (10:08)
[2020-08-16] MEDS: LORAZEPAM INJ 2 MG/ML VIAL IV PRN ×2 (10:17→16:45)
[2020-08-16] MEDS: AZITHROMYCIN 500MG/NS 250 ML 250 ML IV SCH (10:17)
[2020-08-16 11:57] LABS: ABG HCO3 44 mmol/L (22-26); ABG PCO2 59 mmHg (35-45); ABG PH 7.49 (7.35-7.45); ABG PO2 86 mmHg (80-105); ABG TCO2 46
[2020-08-16] MEDS ORDERED: POTASSIUM CHLORIDE 20 MEQ TAB CR PO ONE (16:30)
[2020-08-16] MEDS: MONTELUKAST SODIUM 10 MG TAB PO SCH (17:11)
[2020-08-16] MEDS: METHYLPREDNISOLONE SOD SUCC 40 MG/ML VIAL 1ML IV SCH (20:31)
[2020-08-17] VITALS (8 sets, daily range): BP systolic 117–127; BP diastolic 70–92
[2020-08-17] MEDS: ALBUTEROL SULF 0.083% NEB SOLN 3 ML NEB NEB SCH ×6 (03:00→23:15)
[2020-08-17] MEDS: IPRATROPIUM BROMIDE 0.02% 2.5 ML NEB NEB SCH ×4 (03:00→19:20)
[2020-08-17 05:35] LABS: BASOPHILS % 0.2 % (0.0-1.0); HEMATOCRIT 31.4 % (34.2-44.1); HEMOGLOBIN 9.2 g/dL (12.0-16.0); LYMPHOCYTES # (AUTO) 0.7 (1.0-3.2); LYMPHOCYTES % 6.1 % (18.0-39.1); MEAN CORPUSCULAR HEMOGLOBIN 26.7 pg (28-32); MEAN CORPUSCULAR HGB CONC 29.3 g/dL (31-35); MEAN CORPUSCULAR VOLUME 91.3 fL (81-99); MONOCYTES # (AUTO) 0.9 (0.2-0.8); NEUTROPHILS # (AUTO) 9.1 (2.1-6.9); NEUTROPHILS % 85.1 % (38.7-80.0); PLATELET COUNT 471 x10e3/uL (140-360); RED BLOOD COUNT 3.44 x10e6/uL (3.6-5.1); RED CELL DISTRIBUTION WIDTH 15.9 % (11.7-14.4)
[2020-08-17 05:58] LABS: ALANINE AMINOTRANSFERASE 20 IU/L (0-55); ALBUMIN 3.2 g/dL (3.5-5.0); ALBUMIN/GLOBULIN RATIO 0.9 (0.8-2.0); ALKALINE PHOSPHATASE 65 IU/L (40-150); ANION GAP 12.6 mmol/L (8-16); BLOOD UREA NITROGEN 27 mg/dL (7-26); BUN/CREATININE RATIO 43 (6-25); CALCIUM 8.5 mg/dL (8.4-10.2); CHLORIDE 98 mmol/L (98-107); CREATININE, SERUM 0.63 mg/dL (0.57-1.11); EST GLOMERULAR FILTRATION RATE > 60 ML/MIN (60-); GLUCOSE 102 mg/dL (74-118); POTASSIUM 3.6 mmol/L (3.5-5.1); SODIUM 148 mmol/L (136-145)
[2020-08-17 06:01] LABS: CARBON DIOXIDE 41 mmol/L (22-29)
[2020-08-17] MEDS ORDERED: CEFTRIAXONE SOD 1 GM VIAL ONE (07:32)
[2020-08-17] MEDS ORDERED: SODIUM CHLORIDE 0.9% 50ML 50 ML ONE (07:33)
[2020-08-17] MEDS: METHYLPREDNISOLONE SOD SUCC 40 MG/ML VIAL 1ML IV SCH ×2 (09:00→20:17)
[2020-08-17] MEDS ORDERED: FUROSEMIDE INJ 10 MG/ML 4 ML VIAL IV SCH (09:00)
[2020-08-17] MEDS: POTASSIUM CHLORIDE 20 MEQ TAB CR PO SCH (09:00)
[2020-08-17] MEDS: ENOXAPARIN SOD INJ 40 MG/0.4 ML SYR SC SCH (09:00)
[2020-08-17] MEDS: NEBIVOLOL HCL 2.5 MG TABLET PO SCH (09:00)
[2020-08-17] MEDS: NICOTINE 21 MG/EA PATCH TOP SCH (09:00)
[2020-08-17] MEDS: CEFTRIAXONE SOD 1 GM in SODIUM CHLORIDE 0.9% 50ML 50 ML IV SCH (09:00)
[2020-08-17] MEDS ORDERED: SODIUM CHLORIDE 0.9% 250ML 250 ML ONE (09:42)
[2020-08-17] MEDS: AZITHROMYCIN 500MG/NS 250 ML 250 ML IV SCH (10:30)
[2020-08-17] MEDS ORDERED: LORAZEPAM INJ 2 MG/ML VIAL IV PRN (11:00)
[2020-08-17] MEDS: MONTELUKAST SODIUM 10 MG TAB PO SCH (16:51)
[2020-08-17] MEDS: DOCUSATE SODIUM 100 MG CAP PO SCH (20:58)
[2020-08-17] MEDS: TEMAZEPAM 15 MG CAP PO PRN (20:58)
[2020-08-17] MEDS: THYROID 60 MG TAB PO SCH (20:58)
[2020-08-17] MEDS: APIXAB 2.5 MG TABLET PO SCH (20:58)
[2020-08-18] VITALS (8 sets, daily range): BP systolic 99–118; BP diastolic 62–90
[2020-08-18] MEDS: IPRATROPIUM BROMIDE 0.02% 2.5 ML NEB NEB SCH ×4 (03:20→19:25)
[2020-08-18] MEDS: ALBUTEROL SULF 0.083% NEB SOLN 3 ML NEB NEB SCH ×5 (03:20→19:30)
[2020-08-18 06:52] LABS: BASOPHILS % 0.1 % (0.0-1.0); HEMATOCRIT 35.1 % (34.2-44.1); HEMOGLOBIN 9.8 g/dL (12.0-16.0); LYMPHOCYTES # (AUTO) 0.7 (1.0-3.2); LYMPHOCYTES % 7.7 % (18.0-39.1); MEAN CORPUSCULAR HEMOGLOBIN 26.6 pg (28-32); MEAN CORPUSCULAR HGB CONC 27.9 g/dL (31-35); MEAN CORPUSCULAR VOLUME 95.4 fL (81-99); MONOCYTES # (AUTO) 0.8 (0.2-0.8); MONOCYTES % 8.1 % (4.4-11.3); NEUTROPHILS # (AUTO) 7.9 (2.1-6.9); NEUTROPHILS % 83.4 % (38.7-80.0); PLATELET COUNT 514 x10e3/uL (140-360); RED BLOOD COUNT 3.68 x10e6/uL (3.6-5.1); RED CELL DISTRIBUTION WIDTH 15.8 % (11.7-14.4)
[2020-08-18 07:10] LABS: CALCIUM IONIZED 1.2 mmol/L (1.09-1.30)
[2020-08-18 07:25] LABS: ALANINE AMINOTRANSFERASE 19 IU/L (0-55); ALBUMIN 3.3 g/dL (3.5-5.0); ALBUMIN/GLOBULIN RATIO 0.9 (0.8-2.0); ALKALINE PHOSPHATASE 61 IU/L (40-150); ANION GAP 16.5 mmol/L (8-16); BLOOD UREA NITROGEN 27 mg/dL (7-26); BUN/CREATININE RATIO 43 (6-25); CALCIUM 8.8 mg/dL (8.4-10.2); CHLORIDE 96 mmol/L (98-107); CREATININE, SERUM 0.63 mg/dL (0.57-1.11); EST GLOMERULAR FILTRATION RATE > 60 ML/MIN (60-); GLUCOSE 117 mg/dL (74-118); POTASSIUM 4.5 mmol/L (3.5-5.1); SODIUM 149 mmol/L (136-145)
[2020-08-18 07:30] LABS: CARBON DIOXIDE 41 mmol/L (22-29)
[2020-08-18] MEDS: NICOTINE 21 MG/EA PATCH TOP SCH (08:44)
[2020-08-18] MEDS: ENOXAPARIN SOD INJ 40 MG/0.4 ML SYR SC SCH (08:44)
[2020-08-18] MEDS: POTASSIUM CHLORIDE 20 MEQ TAB CR PO SCH (08:44)
[2020-08-18] MEDS: AZITHROMYCIN 250 MG TAB PO SCH (08:46)
[2020-08-18] MEDS: METHYLPREDNISOLONE SOD SUCC 40 MG/ML VIAL 1ML IV SCH ×2 (08:47→22:27)
[2020-08-18] MEDS: APIXAB 2.5 MG TABLET PO SCH ×2 (08:47→16:49)
[2020-08-18] MEDS: LORATADINE 10 MG TAB PO SCH (08:47)
[2020-08-18] MEDS: NEBIVOLOL HCL 2.5 MG TABLET PO SCH (08:47)
[2020-08-18] MEDS: DOCUSATE SODIUM 100 MG CAP PO SCH ×3 (08:47→16:49)
[2020-08-18] MEDS ORDERED: FUROSEMIDE INJ 10 MG/ML 4 ML VIAL IV SCH (09:00)
[2020-08-18] MEDS ORDERED: SERTRALINE HCL 50 MG TAB PO SCH (09:00)
[2020-08-18] MEDS: BUPROPION HCL 150 MG TABCR PO SCH (14:36)
[2020-08-18] MEDS: TEMAZEPAM 15 MG CAP PO PRN (22:27)
[2020-08-18] MEDS: THYROID 60 MG TAB PO SCH (22:27)
[2020-08-19] VITALS (13 sets, daily range): BP systolic 98–116; BP diastolic 68–86
[2020-08-19] MEDS: IPRATROPIUM BROMIDE 0.02% 2.5 ML NEB NEB SCH ×4 (02:00→19:25)
[2020-08-19] MEDS: ALBUTEROL SULF 0.083% NEB SOLN 3 ML NEB NEB SCH ×6 (02:00→23:30)
[2020-08-19 05:30] LABS: HEMATOCRIT 32.3 % (34.2-44.1); HEMOGLOBIN 9.2 g/dL (12.0-16.0); LYMPHOCYTES # (AUTO) 0.7 (1.0-3.2); LYMPHOCYTES % 7.6 % (18.0-39.1); MEAN CORPUSCULAR HEMOGLOBIN 26.7 pg (28-32); MEAN CORPUSCULAR HGB CONC 28.5 g/dL (31-35); MEAN CORPUSCULAR VOLUME 93.6 fL (81-99); MONOCYTES # (AUTO) 0.3 (0.2-0.8); MONOCYTES % 3.2 % (4.4-11.3); NEUTROPHILS # (AUTO) 8.2 (2.1-6.9); NEUTROPHILS % 88.7 % (38.7-80.0); PLATELET COUNT 493 x10e3/uL (140-360); RED BLOOD COUNT 3.45 x10e6/uL (3.6-5.1); RED CELL DISTRIBUTION WIDTH 15.5 % (11.7-14.4)
[2020-08-19 06:00] LABS: ANION GAP 8.3 mmol/L (8-16); BLOOD UREA NITROGEN 27 mg/dL (7-26); BUN/CREATININE RATIO 43 (6-25); CALCIUM 8.4 mg/dL (8.4-10.2); CHLORIDE 97 mmol/L (98-107); CREATININE, SERUM 0.63 mg/dL (0.57-1.11); EST GLOMERULAR FILTRATION RATE > 60 ML/MIN (60-); GLUCOSE 149 mg/dL (74-118); POTASSIUM 4.3 mmol/L (3.5-5.1); SODIUM 142 mmol/L (136-145)
[2020-08-19 06:02] LABS: CARBON DIOXIDE 41 mmol/L (22-29)
[2020-08-19] MEDS: NICOTINE 21 MG/EA PATCH TOP SCH (09:00)
[2020-08-19] MEDS: NEBIVOLOL HCL 2.5 MG TABLET PO SCH (09:50)
[2020-08-19] MEDS: AZITHROMYCIN 250 MG TAB PO SCH (09:50)
[2020-08-19] MEDS: APIXAB 2.5 MG TABLET PO SCH ×2 (09:50→16:56)
[2020-08-19] MEDS: DOCUSATE SODIUM 100 MG CAP PO SCH ×3 (09:50→16:56)
[2020-08-19] MEDS: LORATADINE 10 MG TAB PO SCH (09:50)
[2020-08-19] MEDS: BUPROPION HCL 150 MG TABCR PO SCH (09:50)
[2020-08-19] MEDS: METHYLPREDNISOLONE SOD SUCC 40 MG/ML VIAL 1ML IV SCH ×2 (10:15→21:00)
[2020-08-19] MEDS ORDERED: LIDOCAINE HCL 2% LOCAL 20 ML VIAL ONE (11:48)
[2020-08-19] MEDS ORDERED: HEPARIN SOD (PORCINE) 1000 UNIT/ML 30ML ONE (11:48)
[2020-08-19] MEDS ORDERED: IOPAMIDOL 370 MG/ML 200 ML INFUS..BTL INJ ONE (11:48)
[2020-08-19] MEDS ORDERED: HEPARIN SOD/SOD CHLORIDE 2,000 ML ONE (11:48)
[2020-08-19] MEDS ORDERED: VERAPAMIL HCL 2.5 MG/ML 2 ML VIAL ONE (11:48)
[2020-08-19] MEDS ORDERED: SODIUM CHLORIDE 0.9% 1000ML 1,000 ML ONE (11:49)
[2020-08-19] MEDS ORDERED: MIDAZOLAM HCL 2 MG/2 ML VIAL ONE (12:52)
[2020-08-19] MEDS ORDERED: FENTANYL CITRATE/PF 100MCG/2 ML INJ ONE (12:52)
[2020-08-19] MEDS: MONTELUKAST SODIUM 10 MG TAB PO SCH ×2 (16:56→17:00)
[2020-08-19] MEDS: TEMAZEPAM 15 MG CAP PO PRN (22:45)
[2020-08-19] MEDS: THYROID 60 MG TAB PO SCH (22:45)
[2020-08-20 00:50] VITALS: BP 108/74
[2020-08-20] MEDS: IPRATROPIUM BROMIDE 0.02% 2.5 ML NEB NEB SCH ×3 (03:35→15:40)
[2020-08-20] MEDS: ALBUTEROL SULF 0.083% NEB SOLN 3 ML NEB NEB SCH ×4 (03:35→15:40)
[2020-08-20 07:56] VITALS: BP 118/77
[2020-08-20 08:44] VITALS: BP 118/77
[2020-08-20] MEDS: METHYLPREDNISOLONE SOD SUCC 40 MG/ML VIAL 1ML IV SCH (08:55)
[2020-08-20] MEDS: AZITHROMYCIN 250 MG TAB PO SCH (08:55)
[2020-08-20] MEDS: LORATADINE 10 MG TAB PO SCH (08:55)
[2020-08-20] MEDS: APIXAB 2.5 MG TABLET PO SCH (08:55)
[2020-08-20] MEDS: NICOTINE 21 MG/EA PATCH TOP SCH ×2 (08:55→10:05)
[2020-08-20] MEDS: DOCUSATE SODIUM 100 MG CAP PO SCH ×2 (08:55→12:10)
[2020-08-20] MEDS: NEBIVOLOL HCL 2.5 MG TABLET PO SCH (08:55)
[2020-08-20] MEDS: BUPROPION HCL 150 MG TABCR PO SCH (08:55)
[2020-08-20 12:00] VITALS: BP 126/83
[2020-08-20 16:00] VITALS: BP 125/87
== END 2020-08-20 17:00 | DRG 208 ==
LOC: ER 09:01 → ERHOLD 09:10 → ICU 11:17 → MED/SURG2 08-16 18:25
PROVIDERS: ADMIT Internal Medicine; ATTEND Internal Medicine
PROC: 5A1945Z Respiratory Ventilation, 24-96 Consecutive Hours (ICD-10-PCS; 2020-08-15)
PROC: 0BH17EZ Insertion of Endotracheal Airway into Trachea, Via Natural or Artificial Opening (ICD-10-PCS; 2020-08-15)
PROC: 4A023N7 Measurement of Cardiac Sampling and Pressure, Left Heart, Percutaneous Approach (ICD-10-PCS; principal; 2020-08-19)
PROC: B2111ZZ Fluoroscopy of Multiple Coronary Arteries using Low Osmolar Contrast (ICD-10-PCS; 2020-08-19)
DX: J96.22 Acute and chronic respiratory failure with hypercapnia (principal); I50.43 Acute on chronic combined systolic (congestive) and diastolic (congestive) heart failure; I21.4 Non-ST elevation (NSTEMI) myocardial infarction; E87.1 Hypo-osmolality and hyponatremia; E87.2 Acidosis; J44.1 Chronic obstructive pulmonary disease with (acute) exacerbation; J90 Pleural effusion, not elsewhere classified; E87.0 Hyperosmolality and hypernatremia; J96.02 Acute respiratory failure with hypercapnia; J96.21 Acute and chronic respiratory failure with hypoxia; I48.91 Unspecified atrial fibrillation; I11.0 Hypertensive heart disease with heart failure; E03.9 Hypothyroidism, unspecified; I48.0 Paroxysmal atrial fibrillation; Z79.01 Long term (current) use of anticoagulants; Z20.822 Contact with and (suspected) exposure to COVID-19; F41.9 Anxiety disorder, unspecified; F17.200 Nicotine dependence, unspecified, uncomplicated; F17.210 Nicotine dependence, cigarettes, uncomplicated
CPT/HCPCS: 31500; 36415; 36600; 51700; 70450; 71045; 76937; 80048; 80053; 81001; 82550; 82553; 82805; 83605; 83735; 83880; 84484; 85025; 85610; 85730; 87040; 87071; 87086; 87205; 93005; 93306; 93458; 94002; 94003; 94640; 97139; 99152; 99153; 99251; 99285; C1769; C1887; J0330; J0456; J0696; J1644; J1650; J1940; J2001; J2060; J2250; J2920; J2930; J3010; J7030; J7050; Q9967; U0002

== ENCOUNTER 2020-09-05 11:00 | Inpatient (IN) | payer MEDICARE, OTHER ==
[2020-09-05] VITALS (8 sets, daily range): BP systolic 32–94; BP diastolic 17–63
[~2020-09-05] VITALS: Ht 160 cm; Wt 50.8 kg
[~2020-09-05 11:00] MED LIST changes: +ALBUTEROL2.5 MG/3 M NEB; +ASPIRIN325 MG PO; +BUPROPION XL150 MG PO; +BUSPIRONE HCL5 MG PO; +BYSTOLIC2.5 MG PO; +CLARITIN10 MG PO; +DOCUSATE SODIU100 MG PO; +IPRATROPIU0.2 MG/1 M INH; +NICODERM CQ1 EAC1 TD; +NITROGLYCERIN0.4 MG SL; +SERTRALINE HCL50 MG PO; +TEMAZEPAM15 MG PO; +TYLENOL325 MG PO
[2020-09-05] MEDS ORDERED: DEXAMETHASONE SOD PHOS 10 MG/1 ML VIAL IV ONE (11:30)
[2020-09-05] MEDS ORDERED: ALBUTEROL/IPRATROPIUM 3 ML NEB NEB PRN ×2 (11:30→12:30)
[2020-09-05] MEDS ORDERED: DILTIAZEM HCL 5 MG/ML 5 ML VIAL IV ONE (11:45)
[2020-09-05] MEDS ORDERED: DEXAMETHASONE PHOS 10MG INJ 20 MG in SODIUM CHLORIDE 0.9% 50ML 50 ML IV ONE (11:45)
[2020-09-05 11:47] LABS: BASOPHILS % 0.3 % (0.0-1.0); HEMATOCRIT 35.6 % (34.2-44.1); HEMOGLOBIN 9.8 g/dL (12.0-16.0); LYMPHOCYTES # (AUTO) 0.4 (1.0-3.2); LYMPHOCYTES % 3.5 % (18.0-39.1); MEAN CORPUSCULAR HEMOGLOBIN 26.6 pg (28-32); MEAN CORPUSCULAR HGB CONC 27.5 g/dL (31-35); MEAN CORPUSCULAR VOLUME 96.7 fL (81-99); MONOCYTES # (AUTO) 0.5 (0.2-0.8); MONOCYTES % 3.7 % (4.4-11.3); NEUTROPHILS # (AUTO) 11.1 (2.1-6.9); NEUTROPHILS % 91.9 % (38.7-80.0); PLATELET COUNT 329 x10e3/uL (140-360); RED BLOOD COUNT 3.68 x10e6/uL (3.6-5.1); RED CELL DISTRIBUTION WIDTH 15.1 % (11.7-14.4)
[2020-09-05] MEDS ORDERED: ADENOSINE 6MG/2ML 1 ML ONE (11:50)
[2020-09-05] MEDS ORDERED: SODIUM CHLORIDE 0.9% 1000ML 1,000 ML ONE (11:53)
[2020-09-05] MEDS ORDERED: DILTIAZEM HCL VIAL 5 ML ONE ×2 (11:56→12:13)
[2020-09-05] MEDS ORDERED: SODIUM CHLORIDE 0.9% 1000ML 1,000 ML IV SCH (12:00)
[2020-09-05] MEDS ORDERED: AMIODARONE HCL 150MG 100 ML IV STA (12:24)
[2020-09-05 12:31] LABS: B-TYPE NATRIURETIC PEPTIDE2 1142.5 pg/mL (0-100)
[2020-09-05] MEDS ORDERED: AMIODARONE HCL 150MG 100 ML ONE (12:34)
[2020-09-05 12:37] LABS: ALANINE AMINOTRANSFERASE 65 IU/L (0-55); ALBUMIN 3.5 g/dL (3.5-5.0); ALBUMIN/GLOBULIN RATIO 0.9 (0.8-2.0); ALKALINE PHOSPHATASE 94 IU/L (40-150); ANION GAP 13.3 mmol/L (8-16); BLOOD UREA NITROGEN 23 mg/dL (7-26); BUN/CREATININE RATIO 34 (6-25); CALCIUM 8.9 mg/dL (8.4-10.2); CARBON DIOXIDE 40 mmol/L (22-29); CHLORIDE 98 mmol/L (98-107); CREATININE, SERUM 0.67 mg/dL (0.57-1.11); EST GLOMERULAR FILTRATION RATE > 60 ML/MIN (60-); GLUCOSE 129 mg/dL (74-118); POTASSIUM 4.3 mmol/L (3.5-5.1); SODIUM 147 mmol/L (136-145)
[2020-09-05] MEDS ORDERED: CEFEPIME HCL 1GM 1 GM in SODIUM CHLORIDE 0.9% 50ML 50 ML IV STA (13:02)
[2020-09-05 13:52] LABS: CLARITY,URINE SL CLOUDY (CLEAR); COLOR,URINE YELLOW (YELLOW)
[2020-09-05 13:53] LABS: KETONES,URINE NEGATIVE (NEGATIVE); LEUKOCYTE ESTERASE ,URINE NEGATIVE (NEGATIVE); NITRITE,URINE NEGATIVE (NEGATIVE); PROTEIN,URINE DIPSTICK >=300 (NEGATIVE); URINE UROBILINOGEN 0.2 mg/dL (0.2 - 1)
[2020-09-05 14:11] LABS: BACTERIA,URINE RARE /HPF; EPITHELIAL CELLS,URINE FEW /LPF; WBC,URINE (MAN) 0-5 /HPF (0-5)
[2020-09-05] MEDS ORDERED: ACETAMINOPHEN 325 MG TAB PO PRN (16:15)
[2020-09-05] MEDS ORDERED: ALBUTEROL SULF 0.083% NEB SOLN 3 ML NEB NEB PRN (16:15)
[2020-09-05] MEDS ORDERED: APIXABAN 2.5 MG PO SCH (16:15)
[2020-09-05] MEDS ORDERED: MONTELUKAST SODIUM 10 MG TAB PO SCH (17:00)
[2020-09-05] MEDS: APIXAB 2.5 MG TABLET PO SCH (17:00)
[2020-09-05] MEDS: DOCUSATE SODIUM 100 MG CAP PO SCH (17:00)
[2020-09-05] MEDS ORDERED: AZITHROMYCIN 500MG/NS 250 ML 250 ML IV SCH (17:00)
[2020-09-05] MEDS: FUROSEMIDE INJ 10 MG/ML 4 ML VIAL IV SCH (17:29)
[2020-09-05] MEDS ORDERED: THYROID 60 MG TAB PO SCH (21:00)
[2020-09-05] MEDS ORDERED: THYROID PORK 90 MG PO SCH (21:00)
[2020-09-05] MEDS ORDERED: TEMAZEPAM 15 MG CAP PO PRN (21:00)
[2020-09-05] MEDS: HYDROMORPHONE 1MG/1ML INJ IV PRN (21:15)
[2020-09-06] VITALS (10 sets, daily range): BP systolic 60–105; BP diastolic 40–61
[2020-09-06 04:50] LABS: BASOPHILS % 0.1 % (0.0-1.0); HEMATOCRIT 37.5 % (34.2-44.1); LYMPHOCYTES # (AUTO) 0.3 (1.0-3.2); LYMPHOCYTES % 2.2 % (18.0-39.1); MEAN CORPUSCULAR HEMOGLOBIN 26.8 pg (28-32); MEAN CORPUSCULAR HGB CONC 26.7 g/dL (31-35); MEAN CORPUSCULAR VOLUME 100.5 fL (81-99); NEUTROPHILS # (AUTO) 12.2 (2.1-6.9); NEUTROPHILS % 88.3 % (38.7-80.0); PLATELET COUNT 297 x10e3/uL (140-360); RED BLOOD COUNT 3.73 x10e6/uL (3.6-5.1); RED CELL DISTRIBUTION WIDTH 14.4 % (11.7-14.4)
[2020-09-06 05:16] LABS: ANION GAP 17.1 mmol/L (8-16); CALCIUM 8.2 mg/dL (8.4-10.2); CREATININE, SERUM 1.71 mg/dL (0.57-1.11)
[2020-09-06 05:30] LABS: POTASSIUM 6.1 mmol/L (3.5-5.1)
[2020-09-06] MEDS: FUROSEMIDE INJ 10 MG/ML 4 ML VIAL IV SCH (06:00)
[2020-09-06] MEDS ORDERED: METHYLPREDNISOLONE SOD SUCC 40 MG/ML VIAL 1ML IV SCH (06:00)
[2020-09-06] MEDS ORDERED: SOD POLYSTYRENE SULFONATE SUSP 15 GM/60 ML BTL PR ONE (07:15)
[2020-09-06] MEDS: DOCUSATE SODIUM 100 MG CAP PO SCH (08:00)
[2020-09-06] MEDS ORDERED: ASPIRIN 325 MG TAB PO SCH (09:00)
[2020-09-06] MEDS: APIXAB 2.5 MG TABLET PO SCH (09:00)
[2020-09-06] MEDS ORDERED: AMIODARONE HCL 200 MG TAB PO SCH (09:00)
[2020-09-06] MEDS: HYDROMORPHONE 1MG/1ML INJ IV PRN ×5 (09:22→20:51)
[2020-09-06] MEDS: LORAZEPAM INJ 2 MG/ML VIAL IV PRN ×2 (14:19→19:21)
== END 2020-09-07 00:54 | disposition expired | DRG 291 ==
LOC: ER 11:20 → ERHOLD 14:05 → ICU 16:14 → IMCU 09-06 01:17 → MED/SURG 09-06 14:48 → IMCU 09-07 00:30
PROVIDERS: ADMIT Internal Medicine; ATTEND Internal Medicine
DX: I50.23 Acute on chronic systolic (congestive) heart failure (principal); J96.22 Acute and chronic respiratory failure with hypercapnia; J96.21 Acute and chronic respiratory failure with hypoxia; J44.1 Chronic obstructive pulmonary disease with (acute) exacerbation; E87.1 Hypo-osmolality and hyponatremia; I48.20 Chronic atrial fibrillation, unspecified; E44.0 Moderate protein-calorie malnutrition; Z68.1 Body mass index [BMI] 19.9 or less, adult; Z66 Do not resuscitate; Z99.81 Dependence on supplemental oxygen; Z88.5 Allergy status to narcotic agent; Z88.0 Allergy status to penicillin; F17.210 Nicotine dependence, cigarettes, uncomplicated; D64.9 Anemia, unspecified
CPT/HCPCS: 36415; 51700; 71045; 80048; 80053; 81001; 83605; 83880; 84484; 85025; 87040; 87086; 93005; 94640; 97139; 99285; J0153; J0456; J0692; J1100; J1170; J1940; J2060; J2920; J7030; U0002